=== PATIENT | female | born 1985 | race American Indian/Alaskan Native ===

== ENCOUNTER 2019-08-25 08:36 | Inpatient (IN) | payer SELFPAY ==
[2019-08-25] MEDS ORDERED: SODIUM CHLORIDE 0.9% 500 ML 500 ML IV ONE ×2 (09:03→11:04)
[2019-08-25 09:46] LABS: Hemoglobin 6.7 gm/dl (10.1-14.3); Mean Corpuscular HGB Conc 32 % (30-34); Mean Corpuscular Volume 83 fl (79-97); Platelet Count 893 K/mm3 (140-440); Red Blood Count 2.52 M/mm3 (3.65-5.03); Red Cell Distribution Width 15.4 % (13.2-15.2)
[2019-08-25 09:54] LABS: Alanine Aminotransferase 26 units/L (7-56); Albumin 3.2 g/dL (3.9-5); BUN/Creatinine Ratio 6; Blood Urea Nitrogen 5 mg/dL (7-17); Calcium 9.6 mg/dL (8.4-10.2); Hemolysis Index 0; INR 1.08 (0.87-1.13)
[2019-08-25] MEDS ORDERED: VANCOMYCIN/NS 1 GM/250 ML 1 GM/250 ML BAG IV ONE (11:02)
[2019-08-25] MEDS ORDERED: SODIUM CHLORIDE 0.9% 1000 ML 1,000 ML IV ONE (11:02)
[2019-08-25] MEDS ORDERED: PIPERACIL/TAZOBACTA 4.5/NS 100 4.5 GM/100 ML VIAL IV ONE (11:03)
[2019-08-25] MEDS ORDERED: MORPHINE 4 MG/1 ML INJ IV ONE (11:03)
[2019-08-25] MEDS ORDERED: ONDANSETRON 4 MG/2 ML INJ IV ONE (11:03)
--- NOTE | 2019-08-25 11:03 | XRay Report ---
CHEST 2 VIEWS INDICATION / CLINICAL INFORMATION: possible Sepsis. COMPARISON: None available. FINDINGS: SUPPORT DEVICES: None. HEART / MEDIASTINUM: No significant abnormality. LUNGS / PLEURA: No significant pulmonary or pleural abnormality. No pneumothorax. No evidence of pneu monia or significant pleural effusion. ADDITIONAL FINDINGS: No significant additional findings. IMPRESSION: 1. No significant abnormality. Signer Name: Charissa Vance MD Signed: 08/25/2019 10:58 AM Workstation Name: [id number]
--- NOTE | 2019-08-25 11:10 | Emergency Department Report ---
ED General Adult HPI - General Chief complaint: Pain General Stated complaint: POST SURGERY/PAIN EXTREME Time Seen by Provider: 08/25/19 10:56 Source: patient Mode of arrival: Ambulatory Limitations: No Limitations - History of Present Illness Initial comments: Patient is 34 years old female with no significant past medical history. Patient presented to the ER complaining of abscess to the right lateral upper thigh. Patient is also complaining of generalized body pain and weakness. Patient had a lipo-suction to the both thighs on August 13 in [place]. Patient stated that symptoms started a few days after the surgery and she called her surgeon and he called in some antibiotic but no improvement. Patient is in moderate distress secondary to pain. - Related Data Allergies Allergy/AdvReac Type Severity Reaction Status Date / Time No Known Allergies Allergy Verified 08/25/19 08:40 ED Review of Systems ROS: Stated complaint: POST SURGERY/PAIN EXTREME Other details as noted in HPI Comment: All other systems reviewed and negative Constitutional: denies: chills, fever Respiratory: denies: cough, shortness of breath, SOB with exertion Cardiovascular: denies: chest pain Gastrointestinal: denies: abdominal pain, nausea, vomiting Skin: lesions Neurological: weakness. denies: headache, numbness, paresthesias, confusion, abnormal gait ED Past Medical Hx - Past Medical History Previous Medical History?: No - Surgical History Past Surgical History?: No ED Physical Exam - General Limitations: No Limitations General appearance: alert, in distress - Head Head exam: Present: atraumatic, normocephalic, normal inspection - Eye Eye exam: Present: normal appearance - ENT ENT exam: Present: mucous membranes dry - Neck Neck exam: Present: normal inspection, full ROM. Absent: tenderness, meningismus, lymphadenopathy, thyromegaly - Respiratory Respiratory exam: Present: normal lung sounds bilaterally - Cardiovascular Cardiovascular Exam: Present: tachycardia - GI/Abdominal GI/Abdominal exam: Present: soft, normal bowel sounds. Absent: distended, tenderness, guarding, rebound, rigid, organomegaly, mass, bruit, pulsatile mass, hernia - Expanded Lower Extremity Exam Right Hip exam: Present: tenderness, swelling, erythema Upper Leg exam: Present: tenderness, swelling, erythema Knee exam: Present: normal inspection, full ROM. Absent: tenderness, swelling, abrasion, laceration, ecchymosis, deformity, crepidus Neuro vascular tendon exam: Present: no vascular compromise - Back Exam Back exam: Present: normal inspection, full ROM. Absent: CVA tenderness (R), CVA tenderness (L) - Neurological Exam Neurological exam: Present: alert, oriented X3, CN II-XII intact - Psychiatric Psychiatric exam: Present: normal mood - Skin Skin exam: Present: warm, intact, normal color ED Course Vital Signs 08/25/19 08/25/19 08:43 11:25 Temperature 98.2 F 99.1 F Pulse Rate 130 H 110 H Respiratory 16 18 Rate Blood Pressure 120/73 Blood Pressure 112/61 [Left] O2 Sat by Pulse 100 100 Oximetry ED Medical Decision Making - Lab Data Result diagrams: 08/25/19 09:10 08/25/19 09:10 - Radiology Data Radiology results: report reviewed - Medical Decision Making Patient is 34 years old female with no significant past medical history. Patient presented to the ER complaining of abscess to the right lateral upper thigh. Patient is also complaining of generalized body pain and weakness. Patient had a lipo-suction to the both thighs on August 13 in [place]. Patient stated that symptoms started a few days after the surgery and she called her surgeon and he called in some antibiotic but no improvement. Patient is in moderate distress secondary to pain. Patient received an normal saline, Zosyn, vancomycin, morphine and Zofran. Labs showed white blood cells of 15.8. I discussed the patient with Dr. Chirinos, he advised to admit the patient to the hospitalist and he is coming down to evaluate the patient. I discussed the patient with Dr. Gutierrez, he advised to admit the patient to Dr. Norman. Critical care attestation.: If time is entered above; I have spent that time in minutes in the direct care of this critically ill patient, excluding procedure time. ED Disposition Clinical Impression: Abscess, gluteal, right, Surgical wound infection Disposition: OP ADMIT IP TO THIS HOSP Is pt being admited?: Yes Condition: Stable Referrals: PRIMARY CARE, [Primary Care Provider] - 3-5 Days
[2019-08-25] MEDS ORDERED: VANCOMYCIN 1,750 MG in SODIUM CHLORIDE 0.9% 500 ML 500 ML IV ONE (12:00)
[2019-08-25 12:27] LABS: Bilirubin,Urine NEG (Negative); Blood,Urine NEG (Negative); Color,Urine Amber (Yellow); Mucus,Urine FEW /HPF
[2019-08-25 12:45] LABS: Total Cells Counted 100
[2019-08-25 12:46] LABS: Band Neutrophils # (Manual) 0.9 K/mm3; Basophils % (Manual) 0 % (0.0-1.8); Myelocytes # (Manual) 0.6 K/mm3; Tear Drop Cells 1+
[2019-08-25 12:47] LABS: Stomatocytes Few
[2019-08-25 12:48] LABS: Platelet Estimate Consistent w Auto
--- NOTE | 2019-08-25 14:45 | Ultrasound Report ---
SOFT TISSUE ULTRASOUND RIGHT GLUTEAL REGION INDICATION: abscess right upper thigh. COMPARISON: None available. FINDINGS: There is a complex fluid collection with internal debris characteristic for abscess within the right gluteal region measuring 5.0 x 2.5 x 1.4cm Signer Name: Kevin Nassar MD Signed: 08/25/2019 2:41 PM Workstation Name: [id number]
--- NOTE | 2019-08-25 15:48 | Consultation ---
History of Present Illness Consult date: 08/25/19 Reason for consult: other (post-op infection) Requesting physician: ERIKA MENDEZ Chief complaint: right thigh pain and drainage - History of present illness History of present illness: 34yo F otherwise healthy presents with concerns of right thigh pain and drainage. She had a plastic surgery procedure on the buttocks in [place] on August 12. She complained of [place] at the airport and inappropriate compression garments as cause for her current problems. She reports that last Monday she began to have some thin drainage from the wound. She has been feeling feverish but has not checked her temperature. Denies chills. Unclear if she has been having nausea and vomiting. She definitely reports headaches. Ultrasound done by the emergency room showed a complex fluid collection in the right buttock/thigh area. Gen. surgery was consult for evaluation and treatment. Past History Past Medical History: No medical history Past Surgical History: Other (buttock plastic surgery in [place] (08/12/19)) Social history: denies: smoking, alcohol abuse Family history: no significant family history Medications and Allergies Allergies Allergy/AdvReac Type Severity Reaction Status Date / Time No Known Allergies Allergy Verified 08/25/19 08:40 Review of Systems - Constitutional fever, no chills, no chronic pain - EENT Ears, nose, mouth and throat: headache - Cardiovascular no chest pain, no shortness of breath - Gastrointestinal no abdominal pain - Muskuloskeletal right: hip pain, hip swelling - Integumentary wounds, color changes Exam Vital Signs Temp Pulse Resp BP Pulse Ox 98.2 F 130 H 16 112/61 100 08/25/19 08:43 08/25/19 08:43 08/25/19 08:43 08/25/19 08:43 08/25/19 08:43 - General physical appearance Positive: well developed, well nourished, no distress, no pain - Eyes Positive: normal occular movement - Respiratory Positive: normal expansion, normal respiratory effort - Extremities Extremity abnormal: edema, ulceration, erythema, tenderness, other (wound noted on right lateral upper thigh with areas of necrosis, erythema, and yellowish drainage. ) - Neurologic Neurologic: alert and oriented to time, place and person, motor strength and sensation are grossly intact - Psychiatric Psychiatric: appropriate mood/affect, intact judgment & insight, cooperative Results - Labs 08/25/19 09:10 08/25/19 09:10 Abnormal lab results 08/25/19 08/25/19 08/25/19 Range/Units 09:10 09:10 12:29 WBC 15.8 H (4.5-11.0) K/mm3 RBC 2.52 L (3.65-5.03) M/mm3 Hgb 6.7 L (10.1-14.3) gm/dl Hct 21.0 L (30.3-42.9) % MCH 27 L (28-32) pg RDW 15.4 H (13.2-15.2) % Plt Count 893 H (140-440) K/mm3 Lymphocytes % (Manual) 6.0 L (13.4-35.0) % Monocytes % (Manual) 9.0 H (0.0-7.3) % Seg Neutrophils # Man 10.6 H (1.8-7.7) K/mm3 Lymphocytes # (Manual) 0.9 L (1.2-5.4) K/mm3 Monocytes # (Manual) 1.4 H (0.0-0.8) K/mm3 Sodium 134 L (137-145) mmol/L Chloride 95.5 L (98-107) mmol/L BUN 5 L (7-17) mg/dL Glucose 101 H (65-100) mg/dL Lactic Acid 2.10 H* (0.7-2.0) mmol/L Albumin 3.2 L (3.9-5) g/dL Crossmatch 08/25/19 Range/Units 12:29 WBC (4.5-11.0) K/mm3 RBC (3.65-5.03) M/mm3 Hgb (10.1-14.3) gm/dl Hct (30.3-42.9) % MCH (28-32) pg RDW (13.2-15.2) % Plt Count (140-440) K/mm3 Lymphocytes % (Manual) (13.4-35.0) % Monocytes % (Manual) (0.0-7.3) % Seg Neutrophils # Man (1.8-7.7) K/mm3 Lymphocytes # (Manual) (1.2-5.4) K/mm3 Monocytes # (Manual) (0.0-0.8) K/mm3 Sodium (137-145) mmol/L Chloride (98-107) mmol/L BUN (7-17) mg/dL Glucose (65-100) mg/dL Lactic Acid (0.7-2.0) mmol/L Albumin (3.9-5) g/dL Crossmatch See Detail Diabetes panel 08/25/19 Range/Units 09:10 Sodium 134 L (137-145) mmol/L Potassium 4.4 (3.6-5.0) mmol/L Chloride 95.5 L (98-107) mmol/L Carbon Dioxide 23 (22-30) mmol/L BUN 5 L (7-17) mg/dL Creatinine 0.8 (0.7-1.2) mg/dL Glucose 101 H (65-100) mg/dL Calcium 9.6 (8.4-10.2) mg/dL AST 26 (5-40) units/L ALT 26 (7-56) units/L Alkaline Phosphatase 101 (35-129) units/L Total Protein 8.0 (6.3-8.2) g/dL Albumin 3.2 L (3.9-5) g/dL Calcium panel 08/25/19 Range/Units 09:10 Calcium 9.6 (8.4-10.2) mg/dL Albumin 3.2 L (3.9-5) g/dL Pituitary panel 08/25/19 Range/Units 09:10 Sodium 134 L (137-145) mmol/L Potassium 4.4 (3.6-5.0) mmol/L Chloride 95.5 L (98-107) mmol/L Carbon Dioxide 23 (22-30) mmol/L BUN 5 L (7-17) mg/dL Creatinine 0.8 (0.7-1.2) mg/dL Glucose 101 H (65-100) mg/dL Calcium 9.6 (8.4-10.2) mg/dL Adrenal panel 08/25/19 Range/Units 09:10 Sodium 134 L (137-145) mmol/L Potassium 4.4 (3.6-5.0) mmol/L Chloride 95.5 L (98-107) mmol/L Carbon Dioxide 23 (22-30) mmol/L BUN 5 L (7-17) mg/dL Creatinine 0.8 (0.7-1.2) mg/dL Glucose 101 H (65-100) mg/dL Calcium 9.6 (8.4-10.2) mg/dL Total Bilirubin 0.40 (0.1-1.2) mg/dL AST 26 (5-40) units/L ALT 26 (7-56) units/L Alkaline Phosphatase 101 (35-129) units/L Total Protein 8.0 (6.3-8.2) g/dL Albumin 3.2 L (3.9-5) g/dL - Imaging Additional studies: US of right leg - report and images reviewed Assessment and Plan - Patient Problems (1) Surgical wound infection Current Visit: Yes Status: Acute Plan to address problem: Pt stable. By history, clinical exam and ultrasound, it appears as though patient has a postoperative abscess. Recommendation was given for incision and drainage in the operating room today. Patient was alarmed and upset that she would need surgery. She was worried about scarring. She wanted other options short of surgery. She wants to talk to her family before any decisions are made. She wants to avoid surgery if possible. I told her that we will not force her into surgery, but if the antibiotics are not effective, the infection may get worse which may put her leg and/or life at risk. She wishes to think about it and talk to her family first. I will follow up with her tomorrow. I explained this to the ER physician Dr. Mendez. Please call with questions. Time=30min
--- NOTE | 2019-08-25 16:40 | History and Physical Report ---
History of Present Illness Date of admission: 08/25/19 15:23 Chief complaint: My butt hurts History of present illness: 34-year-old female with no past medical history presents to ED for evaluation. Patient states that she underwent cosmetic surgery in [place] on August 13. Patient states that she has experienced discomfort in her thighs and buttock postoperatively. Patient states that she returned to [place] postoperatively and has experienced generalized weakness, body aches, and subjective fever over the past 1 week. Patient states that he she notified her physician in [place] who prescribed oral antibiotic. Patient states that she has completed the antibiotic course without improvement in her symptoms. Patient states that she has experienced worsening of the aforementioned symptoms over the past 2 days and presents to [facility] ED for further care and evaluation. Patient transported to [facility] via private vehicle. Patient seen and evaluated in ED upon arrival. Lab and imaging studies reviewed. Patient underwent ultrasound of the right buttock and was found to have a right buttock abscess complicated by right buttock cellulitis. General surgery team consulted in ED. Patient admitted to medical floor for medical stabilization due to increased risk of decompensation. Patient denies fever, chills, chest pain, palpitation, bright red blood per rectum, shortness of breath, skin rash, or recent ill contacts. No prior admission for review. No medication listed for reconciliation at time of evaluation. Past History Past Medical History: No medical history, other (Reviewed) Past Surgical History: Other (buttock plastic surgery in [place] (08/12/19)) Social history: single. denies: smoking, alcohol abuse Family history: no significant family history Medications and Allergies Allergies Allergy/AdvReac Type Severity Reaction Status Date / Time No Known Allergies Allergy Verified 08/25/19 08:40 Home Medications Medication Instructions Recorded Confirmed Last Taken Type No Known Home Medications [No 08/25/19 08/25/19 Unknown History Reported Home Medications] Review of Systems Constitutional: fever, other (Subjective fever), no weight loss, no weight gain Ears, nose, mouth and throat: no ear pain, no ear discharge, no decreased hearing, no nasal congestion, no nasal discharge Breasts: no change in shape, no swelling Cardiovascular: no chest pain, no orthopnea, no edema, no syncope Respiratory: no cough, no cough with sputum, no excessive sputum, no shortness of breath Gastrointestinal: no abdominal pain, no nausea, no vomiting, no diarrhea, no constipation Genitourinary Female: other (Buttock pain and redness.), no pelvic pain, no flank pain Musculoskeletal: no neck stiffness, no neck pain, no shooting arm pain Integumentary: no pruritis, no redness, no jaundice, no blisters Neurological: no transient paralysis, no parathesias, no numbness, no seizures, no syncope, no tremors Psychiatric: no anxiety, no change in sleep habits, no sleep disturbances, no change in appetite, no change in libido, no disorientation Endocrine: no cold intolerance, no excessive thirst, no nocturia, no excessive sweating Hematologic/Lymphatic: no easy bruising, no easy bleeding, no lymphadenopathy, no lymphedema Allergic/Immunologic: no urticaria, no wheezing, no angioedema Exam - Constitutional Vitals: Temp Pulse Resp BP Pulse Ox 99.1 F 110 H 18 120/73 100 08/25/19 11:25 08/25/19 11:25 08/25/19 11:25 08/25/19 11:25 08/25/19 11:25 General appearance: Present: mild distress - EENT Eyes: Present: PERRL ENT: hearing intact, clear oral mucosa - Neck Neck: Present: supple, normal ROM - Respiratory Respiratory effort: normal Respiratory: bilateral: CTA - Cardiovascular Heart Sounds: Present: S1 & S2. Absent: rub, click - Extremities Extremities: pulses symmetrical, No edema Extremity abnormal: erythema, other (Right buttock erythema, tenderness, fluctuance.) Peripheral Pulses: within normal limits - Abdominal General gastrointestinal: Present: soft, non-tender, non-distended, normal bowel sounds Female genitourinary: Present: normal - Integumentary Integumentary: Present: warm, dry, erythema - Musculoskeletal Musculoskeletal: gait normal, strength equal bilaterally - Psychiatric Psychiatric: appropriate mood/affect, intact judgment & insight - Neurologic Neurologic: CNII-XII intact, moves all extremities Results - Labs CBC & Chem 7: 08/25/19 09:10 08/25/19 09:10 Labs: Abnormal lab results 08/25/19 08/25/19 08/25/19 Range/Units 09:10 09:10 12:29 WBC 15.8 H (4.5-11.0) K/mm3 RBC 2.52 L (3.65-5.03) M/mm3 Hgb 6.7 L (10.1-14.3) gm/dl Hct 21.0 L (30.3-42.9) % MCH 27 L (28-32) pg RDW 15.4 H (13.2-15.2) % Plt Count 893 H (140-440) K/mm3 Lymphocytes % (Manual) 6.0 L (13.4-35.0) % Monocytes % (Manual) 9.0 H (0.0-7.3) % Seg Neutrophils # Man 10.6 H (1.8-7.7) K/mm3 Lymphocytes # (Manual) 0.9 L (1.2-5.4) K/mm3 Monocytes # (Manual) 1.4 H (0.0-0.8) K/mm3 Sodium 134 L (137-145) mmol/L Chloride 95.5 L (98-107) mmol/L BUN 5 L (7-17) mg/dL Glucose 101 H (65-100) mg/dL Lactic Acid 2.10 H* (0.7-2.0) mmol/L Albumin 3.2 L (3.9-5) g/dL Crossmatch 08/25/19 Range/Units 12:29 WBC (4.5-11.0) K/mm3 RBC (3.65-5.03) M/mm3 Hgb (10.1-14.3) gm/dl Hct (30.3-42.9) % MCH (28-32) pg RDW (13.2-15.2) % Plt Count (140-440) K/mm3 Lymphocytes % (Manual) (13.4-35.0) % Monocytes % (Manual) (0.0-7.3) % Seg Neutrophils # Man (1.8-7.7) K/mm3 Lymphocytes # (Manual) (1.2-5.4) K/mm3 Monocytes # (Manual) (0.0-0.8) K/mm3 Sodium (137-145) mmol/L Chloride (98-107) mmol/L BUN (7-17) mg/dL Glucose (65-100) mg/dL Lactic Acid (0.7-2.0) mmol/L Albumin (3.9-5) g/dL Crossmatch See Detail Assessment and Plan - Patient Problems (1) Abscess, gluteal, right Current Visit: Yes Status: Acute Plan to address problem: Right buttock ultrasound, CBC, CMP, serial physical exam, IV antibiotic therapy, surgery team consulted. (2) Surgical wound infection Current Visit: Yes Status: Acute Plan to address problem: IV antibiotic therapy, surgery team consulted, pain control, supportive care. (3) Systemic inflammatory response syndrome Current Visit: Yes Status: Acute Plan to address problem: IV antibiotic therapy, IV fluid resuscitation therapy, CBC, CMP, urinalysis, ultrasound of the right buttock. (4) DVT prophylaxis Current Visit: Yes Status: Acute Plan to address problem: SCD to bilateral lower extremities while in bed, patient ambulatory
[2019-08-25] MEDS ORDERED: MORPHINE 2 MG/1 ML INJ IV ONE (19:28)
[2019-08-25] MEDS ORDERED: MORPHINE 2 MG/1 ML INJ ONE (19:29)
[2019-08-25] MEDS ORDERED: MORPHINE 2 MG/1 ML INJ IV PRN (22:08)
[2019-08-25] MEDS ORDERED: SODIUM CHLORIDE 0.9% 500 ML 500 ML ONE (22:36)
[2019-08-26] MEDS: oxyCODONE /ACETAMINOPHEN 5-325MG TAB PO PRN ×3 (01:49→22:36)
[2019-08-26 08:58] LABS: Hematocrit 22.9 % (30.3-42.9); Hemoglobin 7.3 gm/dl (10.1-14.3); Mean Corpuscular HGB Conc 32 % (30-34); Mean Corpuscular Volume 84 fl (79-97); Platelet Count 742 K/mm3 (140-440); Red Blood Count 2.73 M/mm3 (3.65-5.03); Red Cell Distribution Width 15.2 % (13.2-15.2)
--- NOTE | 2019-08-26 09:37 | Progress Note ---
Assessment and Plan - Patient Problems (1) Surgical wound infection Current Visit: Yes Status: Acute Plan to address problem: Pt stable. I spoke with her plastic surgeon, Dr. Mcqueen, this morning. He reports that he has been following pictures that she has been sending. He feels the wound is improved compared to 2 days ago based on the pictures. He details that he injected fat into this area. It is a single collection. In his experience, simply expressing all the liquefied fat tissue is sufficient. He suggested conservative management with IV antibiotics. If she worsens, then proceed to the operating room. Patient would like to follow this plan. Therefore, we will hold off on any surgical intervention at this time. I expressed a small to moderate amount of liquefied fat at the bedside. I encouraged her to do this a few times a day. I will follow along in her care. If she does not improve or worsens, then we will proceed to the operating room. Please call with any questions. Subjective Date of service: 08/26/19 Patient Reports: Positive: no new complaints, afebrile, other (asked that I speak with her plastic surgeon) Objective Vital Signs - 12hr 08/25/19 08/26/19 08/26/19 23:55 00:46 01:01 Temperature 99.0 F 99.2 F 98.6 F Pulse Rate 111 H 113 H 105 H Respiratory 18 20 18 Rate Blood Pressure 131/59 96/53 100/56 O2 Sat by Pulse 100 100 Oximetry 08/26/19 08/26/19 08/26/19 01:31 02:05 02:35 Temperature 98.5 F 98.0 F 98.2 F Pulse Rate 107 H 111 H 102 H Respiratory 18 18 18 Rate Blood Pressure 94/53 92/43 82/43 O2 Sat by Pulse Oximetry 08/26/19 08/26/19 02:54 05:04 Temperature 98.2 F 98.0 F Pulse Rate 108 H 95 H Respiratory 18 20 Rate Blood Pressure 87/39 128/68 O2 Sat by Pulse 100 Oximetry - General physical appearance no distress, no pain, other (does not appear ill) - Eyes normal occular movement - Respiratory normal expansion, normal respiratory effort - Integumentary other (thinned, necrotic skin on right lateral thigh. +warmth and tenderness. liquifed fat draining out. ) - Psychiatric oriented to time, oriented to person, oriented to place, speech is normal, memory intact - Labs 08/26/19 08:26 08/25/19 09:10 Diabetes panel 08/25/19 Range/Units 09:10 Sodium 134 L (137-145) mmol/L Potassium 4.4 (3.6-5.0) mmol/L Chloride 95.5 L (98-107) mmol/L Carbon Dioxide 23 (22-30) mmol/L BUN 5 L (7-17) mg/dL Creatinine 0.8 (0.7-1.2) mg/dL Glucose 101 H (65-100) mg/dL Calcium 9.6 (8.4-10.2) mg/dL AST 26 (5-40) units/L ALT 26 (7-56) units/L Alkaline Phosphatase 101 (35-129) units/L Total Protein 8.0 (6.3-8.2) g/dL Albumin 3.2 L (3.9-5) g/dL Calcium panel 08/25/19 Range/Units 09:10 Calcium 9.6 (8.4-10.2) mg/dL Albumin 3.2 L (3.9-5) g/dL Pituitary panel 08/25/19 Range/Units 09:10 Sodium 134 L (137-145) mmol/L Potassium 4.4 (3.6-5.0) mmol/L Chloride 95.5 L (98-107) mmol/L Carbon Dioxide 23 (22-30) mmol/L BUN 5 L (7-17) mg/dL Creatinine 0.8 (0.7-1.2) mg/dL Glucose 101 H (65-100) mg/dL Calcium 9.6 (8.4-10.2) mg/dL Adrenal panel 08/25/19 Range/Units 09:10 Sodium 134 L (137-145) mmol/L Potassium 4.4 (3.6-5.0) mmol/L Chloride 95.5 L (98-107) mmol/L Carbon Dioxide 23 (22-30) mmol/L BUN 5 L (7-17) mg/dL Creatinine 0.8 (0.7-1.2) mg/dL Glucose 101 H (65-100) mg/dL Calcium 9.6 (8.4-10.2) mg/dL Total Bilirubin 0.40 (0.1-1.2) mg/dL AST 26 (5-40) units/L ALT 26 (7-56) units/L Alkaline Phosphatase 101 (35-129) units/L Total Protein 8.0 (6.3-8.2) g/dL Albumin 3.2 L (3.9-5) g/dL
[2019-08-26 09:42] LABS: Anisocytosis 1+; Band Neutrophils # (Manual) 1.3 K/mm3; Basophils % (Manual) 0 % (0.0-1.8); Total Cells Counted 100
[2019-08-26 09:43] LABS: Hypochromasia Few; Ovalocytes Few; Platelet Estimate Consistent w Auto; Tear Drop Cells Few
--- NOTE | 2019-08-26 13:34 | Progress Note ---
Assessment and Plan - Patient Problems (1) Abscess, gluteal, right Current Visit: Yes Status: Acute Plan to address problem: Right buttock ultrasound, CBC, CMP, serial physical exam, IV antibiotic therapy, surgery team consulted. (2) Surgical wound infection Current Visit: Yes Status: Acute Plan to address problem: IV antibiotic therapy, surgery team consulted, pain control, supportive care. (3) Systemic inflammatory response syndrome Current Visit: Yes Status: Acute Plan to address problem: IV antibiotic therapy, IV fluid resuscitation therapy, CBC, CMP, urinalysis, ultrasound of the right buttock. Patient continues to have leukocytosis and pain at her surgical site. Will continue current IV antibiotic therapy. (4) DVT prophylaxis Current Visit: Yes Status: Acute Plan to address problem: SCD to bilateral lower extremities while in bed, patient ambulatory History Interval history: 34-year-old female hospital day 2 with right buttock abscess. Patient states that her pain is more controlled today pain. Patient continues to acknowledge right buttock pain. Patient denies fever, chills, chest pain, palpitations, shortness of breath. Patient continues to have leukocytosis. Patient is unable to maintain a seated position due to buttock pain. Patient underwent partial expulsion of fat from surgical injection site as per surgical team this a.m. Patient resting in bed while lying on her abdomen. Patient appears comfortable. No reported nursing events Hospitalist Physical - Constitutional Vitals: Temp Pulse Resp BP Pulse Ox 97.2 F L 95 H 20 101/57 100 08/26/19 11:34 08/26/19 05:04 08/26/19 11:34 08/26/19 11:34 08/26/19 05:04 General appearance: Present: mild distress - EENT Eyes: Present: PERRL ENT: hearing intact - Neck Neck: Present: supple - Respiratory Respiratory effort: normal Respiratory: bilateral: CTA - Cardiovascular Rhythm: regular Heart Sounds: Present: S1 & S2 - Extremities Extremities: no ischemia Extremity abnormal: erythema, deformity, tenderness, other (Right buttock) Peripheral Pulses: within normal limits - Abdominal General gastrointestinal: soft, non-tender, non-distended - Integumentary Integumentary: Present: clear, warm, dry - Psychiatric Psychiatric: appropriate mood/affect, cooperative Results - Labs CBC & Chem 7: 08/26/19 08:26 08/25/19 09:10 Labs: Laboratory Last Values WBC 14.1 K/mm3 (4.5-11.0) H 08/26/19 08:26 RBC 2.73 M/mm3 (3.65-5.03) L 08/26/19 08:26 Hgb 7.3 gm/dl (10.1-14.3) L 08/26/19 08:26 Hct 22.9 % (30.3-42.9) L 08/26/19 08:26 MCV 84 fl (79-97) 08/26/19 08:26 MCH 27 pg (28-32) L 08/26/19 08:26 MCHC 32 % (30-34) 08/26/19 08:26 RDW 15.2 % (13.2-15.2) 08/26/19 08:26 Plt Count 742 K/mm3 (140-440) H 08/26/19 08:26 Add Manual Diff Complete 08/26/19 08:26 Total Counted 100 08/26/19 08:26 Seg Neuts % (Manual) 66.0 % (40.0-70.0) 08/26/19 08:26 Band Neutrophils % 9.0 % 08/26/19 08:26 Lymphocytes % (Manual) 11.0 % (13.4-35.0) L 08/26/19 08:26 Reactive Lymphs % (Man) 0 % 08/26/19 08:26 Monocytes % (Manual) 8.0 % (0.0-7.3) H 08/26/19 08:26 Eosinophils % (Manual) 4.0 % (0.0-4.3) 08/26/19 08:26 Basophils % (Manual) 0 % (0.0-1.8) 08/26/19 08:26 Metamyelocytes % 2.0 % 08/26/19 08:26 Myelocytes % 0 % 08/26/19 08:26 Promyelocytes % 0 % 08/26/19 08:26 Blast Cells % 0 % 08/26/19 08:26 Nucleated RBC % Not Reportable 08/26/19 08:26 Seg Neutrophils # Man 9.3 K/mm3 (1.8-7.7) H 08/26/19 08:26 Band Neutrophils # 1.3 K/mm3 08/26/19 08:26 Lymphocytes # (Manual) 1.6 K/mm3 (1.2-5.4) 08/26/19 08:26 Abs React Lymphs (Man) 0.0 K/mm3 08/26/19 08:26 Monocytes # (Manual) 1.1 K/mm3 (0.0-0.8) H 08/26/19 08:26 Eosinophils # (Manual) 0.6 K/mm3 (0.0-0.4) H 08/26/19 08:26 Basophils # (Manual) 0.0 K/mm3 (0.0-0.1) 08/26/19 08:26 Metamyelocytes # 0.3 K/mm3 08/26/19 08:26 Myelocytes # 0.0 K/mm3 08/26/19 08:26 Promyelocytes # 0.0 K/mm3 08/26/19 08:26 Blast Cells # 0.0 K/mm3 08/26/19 08:26 WBC Morphology Not Reportable 08/26/19 08:26 Hypersegmented Neuts Not Reportable 08/26/19 08:26 Hyposegmented Neuts Not Reportable 08/26/19 08:26 Hypogranular Neuts Not Reportable 08/26/19 08:26 Smudge Cells Not Reportable 08/26/19 08:26 Toxic Granulation Not Reportable 08/26/19 08:26 Toxic Vacuolation Not Reportable 08/26/19 08:26 Dohle Bodies Not Reportable 08/26/19 08:26 Pelger-Huet Anomaly Not Reportable 08/26/19 08:26 David Rods Not Reportable 08/26/19 08:26 Platelet Estimate Consistent w auto 08/26/19 08:26 Clumped Platelets Not Reportable 08/26/19 08:26 Plt Clumps, EDTA Not Reportable 08/26/19 08:26 Large Platelets Not Reportable 08/26/19 08:26 Giant Platelets Not Reportable 08/26/19 08:26 Platelet Satelliting Not Reportable 08/26/19 08:26 Plt Morphology Comment Not Reportable 08/26/19 08:26 RBC Morphology Not Reportable 08/26/19 08:26 Dimorphic RBCs Not Reportable 08/26/19 08:26 Polychromasia 1+ 08/26/19 08:26 Hypochromasia Few 08/26/19 08:26 Poikilocytosis Not Reportable 08/26/19 08:26 Anisocytosis 1+ 08/26/19 08:26 Microcytosis Not Reportable 08/26/19 08:26 Macrocytosis Not Reportable 08/26/19 08:26 Spherocytes Not Reportable 08/26/19 08:26 Pappenheimer Bodies Not Reportable 08/26/19 08:26 Sickle Cells Not Reportable 08/26/19 08:26 Target Cells Not Reportable 08/26/19 08:26 Tear Drop Cells Few 08/26/19 08:26 Ovalocytes Few 08/26/19 08:26 Stomatocytes Few 08/25/19 09:10 Helmet Cells Not Reportable 08/26/19 08:26 [place] Bodies Not Reportable 08/26/19 08:26 [place] Rings Not Reportable 08/26/19 08:26 [place] Cells Not Reportable 08/26/19 08:26 Bite Cells Not Reportable 08/26/19 08:26 Crenated Cell Not Reportable 08/26/19 08:26 Elliptocytes Not Reportable 08/26/19 08:26 Acanthocytes (Spur) Not Reportable 08/26/19 08:26 Rouleaux Not Reportable 08/26/19 08:26 Hemoglobin C Crystals Not Reportable 08/26/19 08:26 Schistocytes Not Reportable 08/26/19 08:26 Malaria parasites Not Reportable 08/26/19 08:26 Jose E Bodies Not Reportable 08/26/19 08:26 Hem Pathologist Commnt No 08/26/19 08:26 PT 14.1 Sec. (12.2-14.9) 08/25/19 09:10 INR 1.08 (0.87-1.13) 08/25/19 09:10 VBG pH 7.394 (7.320-7.420) 08/25/19 09:10 Sodium 134 mmol/L (137-145) L 08/25/19 09:10 Potassium 4.4 mmol/L (3.6-5.0) 08/25/19 09:10 Chloride 95.5 mmol/L (98-107) L 08/25/19 09:10 Carbon Dioxide 23 mmol/L (22-30) 08/25/19 09:10 Anion Gap 20 mmol/L 08/25/19 09:10 BUN 5 mg/dL (7-17) L 08/25/19 09:10 Creatinine 0.8 mg/dL (0.7-1.2) 08/25/19 09:10 Estimated GFR > 60 ml/min 08/25/19 09:10 BUN/Creatinine Ratio 6 % 08/25/19 09:10 Glucose 101 mg/dL (65-100) H 08/25/19 09:10 Lactic Acid 1.90 mmol/L (0.7-2.0) 08/25/19 14:34 Calcium 9.6 mg/dL (8.4-10.2) 08/25/19 09:10 Total Bilirubin 0.40 mg/dL (0.1-1.2) 08/25/19 09:10 AST 26 units/L (5-40) 08/25/19 09:10 ALT 26 units/L (7-56) 08/25/19 09:10 Alkaline Phosphatase 101 units/L (35-129) 08/25/19 09:10 Total Protein 8.0 g/dL (6.3-8.2) 08/25/19 09:10 Albumin 3.2 g/dL (3.9-5) L 08/25/19 09:10 Albumin/Globulin Ratio 0.7 % 08/25/19 09:10 HCG, Qual Negative (Negative) 08/25/19 12:29 Urine Color Myrna (Yellow) 08/25/19 11:30 Urine Turbidity Slightly-cloudy (Clear) 08/25/19 11:30 Urine pH 6.0 (5.0-7.0) 08/25/19 11:30 Ur Specific [place] 1.020 (1.003-1.030) 08/25/19 11:30 Urine Protein 30 mg/dl mg/dL (Negative) 08/25/19 11:30 Urine Glucose (UA) Neg mg/dL (Negative) 08/25/19 11:30 Urine Ketones Neg mg/dL (Negative) 08/25/19 11:30 Urine Blood Neg (Negative) 08/25/19 11:30 Urine Nitrite Neg (Negative) 08/25/19 11:30 Urine Bilirubin Neg (Negative) 08/25/19 11:30 Urine Urobilinogen 4.0 mg/dL (<2.0) 08/25/19 11:30 Ur Leukocyte Esterase Tr (Negative) 08/25/19 11:30 Urine WBC (Auto) 6.0 /HPF (0.0-6.0) 08/25/19 11:30 Urine RBC (Auto) 4.0 /HPF (0.0-6.0) 08/25/19 11:30 U Epithel Cells (Auto) 11.0 /HPF (0-13.0) 08/25/19 11:30 Urine Mucus Few /HPF 08/25/19 11:30 Blood Type O POSITIVE 08/25/19 12:29 Antibody Screen Negative 08/25/19 12:29 Crossmatch See Detail 08/25/19 12:29 Active Medications - Current Medications Current Medications: Generic Name Dose Route Start Last Admin Trade Name Freq PRN Reason Stop Dose Admin Piperacillin Sod/Tazobactam Sod 4.5 gm in 100 mls @ 200 mls/hr 08/26/19 14:00 Zosyn/Ns 4.5gm/100ml IV Q8HR KAVIN Protocol Vancomycin HCl 1,250 mg/ 275 mls @ 166.667 mls/hr 08/26/19 12:00 Sodium Chloride IV Q12H KAVIN Oxycodone/Acetaminophen 1 tab 08/26/19 01:37 08/26/19 01:49 Percocet 5/325 PO 1 tab Q6H PRN Administration Pain, Moderate (4-6)
[2019-08-26] MEDS: VANCOMYCIN 1,250 MG in SODIUM CHLORIDE 0.9% 250ML 250 ML IV SCH (14:56)
[2019-08-26] MEDS ORDERED: SODIUM CHLORIDE 0.9% 500 ML 500 ML ONE (15:09)
[2019-08-26] MEDS: PIPERACIL/TAZOBACTA 4.5/NS 100 4.5 GM/100 ML VIAL IV SCH ×2 (17:13→22:02)
[2019-08-27] MEDS: VANCOMYCIN 1,250 MG in SODIUM CHLORIDE 0.9% 250ML 250 ML IV SCH ×2 (00:45→11:16)
[2019-08-27] MEDS: PIPERACIL/TAZOBACTA 4.5/NS 100 4.5 GM/100 ML VIAL IV SCH ×2 (05:55→15:05)
[2019-08-27 08:51] LABS: Hemoglobin 7.7 gm/dl (10.1-14.3); Mean Corpuscular HGB Conc 32 % (30-34); Mean Corpuscular Volume 84 fl (79-97); Platelet Count 774 K/mm3 (140-440); Red Blood Count 2.86 M/mm3 (3.65-5.03); Red Cell Distribution Width 15.8 % (13.2-15.2)
--- NOTE | 2019-08-27 09:52 | Progress Note ---
Assessment and Plan - Patient Problems (1) Surgical wound infection Current Visit: Yes Status: Acute Plan to address problem: Pt stable. We discussed that her WBC is stable. Hoping for it to continue to decrease. I offered that we could discharge her on oral Abx and have her get back to [facility] soon so that she and her plastic surgeon can decide how best to manage this or we would go to surgery and clean out the wound. she was unable to decide what to do. Eventually, I told her to let us know what she wants to do. She can not stay here indefinitely on IV Abx. Please call with questions. time=10min Subjective Date of service: 08/27/19 Patient Reports: Positive: feels better Objective Vital Signs - 12hr 08/26/19 08/26/19 08/26/19 22:00 22:36 23:27 Temperature 98.0 F Pulse Rate 110 H Pulse Rate [ 82 Apical] Respiratory 20 20 Rate Blood Pressure 93/55 O2 Sat by Pulse 98 98 Oximetry 08/26/19 08/27/19 23:36 05:43 Temperature 98.0 F Pulse Rate 105 H Pulse Rate [ Apical] Respiratory 18 20 Rate Blood Pressure 108/58 O2 Sat by Pulse 100 Oximetry - General physical appearance no distress, no pain, other (does not appear ill. Standing in the room) - Respiratory normal expansion, normal respiratory effort - Integumentary other (right leg wound appears unchanged - no worse. no active drainage at this time. ) - Psychiatric oriented to time, oriented to person, oriented to place, speech is normal, memory intact - Labs 08/27/19 08:28 08/25/19 09:10
[2019-08-27 09:55] LABS: Anisocytosis Few; Basophils % (Manual) 0 % (0.0-1.8); Eosinophils % (Manual) 0 % (0.0-4.3); Hypochromasia Rare; Total Cells Counted 100
[2019-08-27 09:56] LABS: Ovalocytes Rare; Platelet Estimate Consistent w Auto; Tear Drop Cells Rare
[2019-08-27] MEDS ORDERED: ONDANSETRON 8 MG ODT TAB PO PRN ×2 (11:27→11:34)
[2019-08-27] MEDS ORDERED: MORPHINE 2 MG/1 ML INJ IV PRN (11:28)
[2019-08-27] MEDS ORDERED: ONDANSETRON 4 MG/2 ML INJ IV PRN (11:28)
[2019-08-27] MEDS ORDERED: ACETAMINOPHEN 325 MG TAB PO PRN (11:28)
[2019-08-27] MEDS ORDERED: ONDANSETRON 4 MG ODT TAB PO PRN (11:34)
[2019-08-27] MEDS: oxyCODONE /ACETAMINOPHEN 5-325MG TAB PO PRN ×2 (11:48→18:35)
[2019-08-27] MEDS ORDERED: VANCOMYCIN PHARMACY TO DOSE IV SCH (12:00)
--- NOTE | 2019-08-27 15:46 | Consultation ---
History of Present Illness - Reason for Consult Consult date: 08/27/19 - History of Present Illness 34 yo F no PMHx admitted to the hospital for a post-plastic surgical gluteal abscess. She notes she underwent a liposuction in [place] on of last year. She notes that after the operation she began to have pain and discomfort in her thighs which eventually developed into generalized weakness, myalgias and subjective fevers. her surgeon in [place] prescribed an oral antibiotic which did not alleviate her symptoms. Indeed, the symptoms continued to progress and become worse and worse. In the ER, an ultrasound was performed which showed an abscess in the gluteus. She was evaluated by general surgery who recommended an I&D in the OR which the patient refused due to fears of scarring. Afebrile with a white count of 14. She is tachycardic. She is currently receiving vancomycin and Zosyn. Blood and urine cultures are thus far negative. Imaging personally reviewed: CXR - normal Review of Systems: Bold if positive, otherwise negative General: fevers, chills, rigors HEENT: visual disturbance, diplopia, eye pain Respiratory: cough, sputum, hemoptysis, shortness of breath Cardiovascular: chest pain, syncope Gastrointestinal: nausea, vomiting, diarrhea, abdominal pain Genitourinary: dysuria, hematuria, flank pain Musculoskeletal: neck pain, back pain, joint pain, edema Neurologic: headaches, seizures Hematologic: easy bruising or bleeding Endocrine: night sweats, acute weight loss Skin: rash, jaundice, redness Psychiatric: suicidal, homicidal ideation Past History Past Medical History: No medical history, other (Reviewed) Past Surgical History: Other (buttock plastic surgery in [place] (08/12/19)) Social history: single. denies: smoking, alcohol abuse Family history: no significant family history Medications and Allergies Allergies Allergy/AdvReac Type Severity Reaction Status Date / Time No Known Allergies Allergy Verified 08/25/19 08:40 Home Medications Medication Instructions Recorded Confirmed Last Taken Type Amoxicillin/K Clav Tab 875 mg PO BID 08/25/19 08/25/19 Unknown History Bactrim DS TAB 800 mg PO BID 08/25/19 08/25/19 Unknown History Ondansetron [Zofran ODT TAB] 4 mg PO Q6H PRN 08/25/19 08/25/19 Unknown History oxyCODONE /ACETAMINOPHEN 7.5 - 325 mg PO Q4H PRN 08/25/19 08/25/19 Unknown History Active Meds: Active Medications Acetaminophen (Tylenol) 650 mg PO Q4H PRN PRN Reason: Pain MILD(1-3)/Fever >100.5/THOMPSON Enoxaparin Sodium (Enoxaparin) 40 mg SUB-Q QDAY@2200 KAVIN Piperacillin Sod/Tazobactam Sod (Zosyn/Ns 4.5gm/100ml) 4.5 gm in 100 mls @ 200 mls/hr IV Q8HR [facility]; Protocol Last Admin: 08/27/19 15:05 Dose: 200 mls/hr Documented by: Vancomycin HCl 1,250 mg/ (Sodium Chloride) 275 mls @ 166.667 mls/hr IV Q12H [facility] Last Admin: 08/27/19 11:16 Dose: 166.667 mls/hr Documented by: Morphine Sulfate (Morphine) 2 mg IV Q4H PRN PRN Reason: Pain, Moderate (4-6) Ondansetron HCl (Zofran) 4 mg IV Q8H PRN PRN Reason: Nausea And Vomiting Ondansetron HCl (Zofran Odt) 4 mg PO Q6H PRN PRN Reason: Nausea And Vomiting Oxycodone/Acetaminophen (Percocet 5/325) 1 tab PO Q6H PRN PRN Reason: Pain, Moderate (4-6) Last Admin: 08/27/19 11:48 Dose: 1 tab Documented by: Sodium Chloride (Sodium Chloride Flush Syringe 10 Ml) 10 ml IV BID KAVIN Sodium Chloride (Sodium Chloride Flush Syringe 10 Ml) 10 ml IV PRN PRN PRN Reason: LINE FLUSH Physical Examination - Physical Exam Narrative exam: Constitutional: Alert, cooperative. No acute distress Head, Ears, Nose: Normocephalic, atraumatic. External ears, nose normal Eyes: Conjunctivae/corneas clear. No icterus. No ptosis. Neck: Supple, no meningeal signs Oral: dentition fair, no thrush Cardiovascular: S1, S2 normal. Respiratory: Good air entry, clear to auscultation bilaterally GI: Soft, non-tender; bowel sounds normal. No peritoneal signs. Musculoskeletal: bilateral hip/gluteal induration/tenderness/swelling Skin: No rash or abscess Hem/Lymphatic: No palpable cervical or supraclavicular nodes. No lymphangitis Psych: Mood ok. Affect normal Neurological: Awake, alert, oriented. No gross abnormality - Constitutional Vitals: Vital Signs Temp Pulse Resp BP Pulse Ox 98.9 F 108 H 19 98/42 98 08/27/19 11:19 08/27/19 11:19 08/27/19 11:19 08/27/19 11:19 08/27/19 11:19 Temperature -Last 24 Hours Temperature 98.9 F Temperature 98.0 F Temperature 98.0 F Results - Labs CBC & Chem 7: 08/27/19 08:28 08/25/19 09:10 Labs: Abnormal lab results 08/27/19 Range/Units 08:28 WBC 14.5 H (4.5-11.0) K/mm3 RBC 2.86 L (3.65-5.03) M/mm3 Hgb 7.7 L (10.1-14.3) gm/dl Hct 24.0 L (30.3-42.9) % MCH 27 L (28-32) pg RDW 15.8 H (13.2-15.2) % Plt Count 774 H (140-440) K/mm3 Seg Neuts % (Manual) 71.0 H (40.0-70.0) % Seg Neutrophils # Man 10.3 H (1.8-7.7) K/mm3 Assessment and Plan Cultures: 08/25/2019 blood cultures - pending 08/25/2019 urine cultures - no growth A&P: 34 yo F no PMHx admitted with gluteal abscess after having recent plastic surgery #Acute sepsis - present with tachycardia and leukocytosis, secondary to abscess #2 #Gluteal abscess - agree with surgical recommendation for I&D in the OR. High risk of developing worsening abscess or metastatic infection with risk of limb loss or . Would continue IV antibiotics for now, exchange Zosyn fro cefepime/Flagyl to avoid nephrotoxicity of vanc/Zosyn combo. She is now amenable to surgery on my interview with her. She also reports the contralateral side is now developing similar symptoms. Recommend US of that side, and potential I&D as well if abscess is seen. Most likely Staph/Strep as causative agent given quick timecourse, however plastic surgery infections can be assocaite with AFB. Recommendations: - stop Zosyn - start cefepime 2g q8h - start metronidazole 500mg q8h - continue vancomycin dosed per pharmacy. Goal trough 10-20 - surgical I&D - USS of the left gluteus to r/o abscess - please obtain intra-operative bacterial, fungal, AFB cultures Thank you for the consult, we will continue to follow. Marlyn Oakes MD [facility] M: [phone] O: [phone] F: [phone]
--- NOTE | 2019-08-27 16:59 | Progress Note ---
Assessment and Plan Assessment and plan: 34-year-old woman who recently underwent Italian butt lift. She had liposuction from her abdominal area and had fat transfer to her bottom. She presents with swelling pain and drainage from the right side of her thigh. She is also having swelling and fluctuance of left thigh. Cellulitis/abscess -Unfortunately this is unexpected adverse outcome of the surgery Continue empiric antibiotics. Patient is not improving I have discussed with patient that she needs surgery, she has now consented. Patient is planned for surgery tomorrow for I&D Sepsis Continue sepsis protocol DVT prophylaxis; frequent ambulation History Interval history: Continues to complain of drainage from right upper lateral thigh and swelling of left upper lateral thigh Review of systems Constitutional: No fevers, no malaise, no joint pains CVS: No chest pain, no orthopnea, no pedal edema GI: No abdominal pain, no diarrhea, no vomiting, no constipation Respiratory: , no wheezing, no coughing Hospitalist Physical - Physical exam Narrative exam: General.: Appears well, no distress, nontoxic HEENT: Moist mucous membranes, extraocular muscles intact, no lymphadenopathy Neck: supple Cardiac: S1-S2 heard Lungs: clear to auscultation bilaterally Abdomen: soft , nontender, nondistended, bowel sounds positive Extremities: no edema clubbing or cyanosis Skin: Induration around the buttock/thigh, there is a dressing on the right side which was not removed, and has recently been packed. But on the left side there is fluctuance Neurologic: no gross focal deficits Psych: calm, and cooperative - Constitutional Vitals: Temp Pulse Resp BP Pulse Ox 98.9 F 108 H 19 98/42 98 08/27/19 11:19 08/27/19 11:19 08/27/19 11:19 08/27/19 11:19 08/27/19 11:19 General appearance: Present: mild distress Results - Labs CBC & Chem 7: 08/27/19 08:28 08/25/19 09:10 Labs: Laboratory Last Values WBC 14.5 K/mm3 (4.5-11.0) H 08/27/19 08:28 RBC 2.86 M/mm3 (3.65-5.03) L 08/27/19 08:28 Hgb 7.7 gm/dl (10.1-14.3) L 08/27/19 08:28 Hct 24.0 % (30.3-42.9) L 08/27/19 08: MCV 84 fl (79-97) 08/27/19 08: MCH 27 pg (28-32) L 08/27/19 08: MCHC 32 % (30-34) 08/27/19: RDW 15.8 % (13.2-15.2) H 08/27/19 08: Plt Count 774 K/mm3 (140-440) H 08/27/19 08: Add Manual Diff Complete 08/27/19: Total Counted 100 08/27/19 08: Seg Neuts % (Manual) 71.0 % (40.0-70.0) H 08/27/19: Band Neutrophils % 0 % 08/27/19 08:28 Lymphocytes % (Manual) 22.0 % (13.4-35.0) 08/27/19 08: Reactive Lymphs % (Man) 0 % 08/27/19 08: Monocytes % (Manual) 5.0 % (0.0-7.3) 08/27/19 08: Eosinophils % (Manual) 0 % (0.0-4.3) 08/27/19 08: Basophils % (Manual) 0 % (0.0-1.8) 08/27/19 08: Metamyelocytes % 2.0 % 08/27/19 08:28 Myelocytes % 0 % 08/27/19 08:28 Promyelocytes % 0 % 08/27/19 08:28 Blast Cells % 0 % 08/27/19 08: Nucleated RBC % Not Reportable 08/27/19 08: Seg Neutrophils # Man 10.3 K/mm3 (1.8-7.7) H 08/27/19 08:28 Band Neutrophils # 0.0 K/mm3 08/27/19 08:28 Lymphocytes # (Manual) 3.2 K/mm3 (1.2-5.4) 08/27/19 08:28 Abs React Lymphs (Man) 0.0 K/mm3 08/27/19 08:28 Monocytes # (Manual) 0.7 K/mm3 (0.0-0.8) 08/27/19 08:28 Eosinophils # (Manual) 0.0 K/mm3 (0.0-0.4) 08/27/19 08:28 Basophils # (Manual) 0.0 K/mm3 (0.0-0.1) 08/27/19 08:28 Metamyelocytes # 0.3 K/mm3 08/27/19 08:28 Myelocytes # 0.0 K/mm3 08/27/19 08:28 Promyelocytes # 0.0 K/mm3 08/27/19 08:28 Blast Cells # 0.0 K/mm3 08/27/19 08:28 WBC Morphology Not Reportable 08/27/19 08:28 Hypersegmented Neuts Not Reportable 08/27/19 08:28 Hyposegmented Neuts Not Reportable 08/27/19 08:28 Hypogranular Neuts Not Reportable 08/27/19 08:28 Smudge Cells Not Reportable 08/27/19 08:28 Toxic Granulation Not Reportable 08/27/19 08:28 Toxic Vacuolation Not Reportable 08/27/19 08:28 Dohle Bodies Not Reportable 08/27/19 08:28 Pelger-Huet Anomaly Not Reportable 08/27/19 08:28 David Rods Not Reportable 08/27/19 08:28 Platelet Estimate Consistent w auto 08/27/19 08:28 Clumped Platelets Not Reportable 08/27/19 08:28 Plt Clumps, EDTA Not Reportable 08/27/19 08:28 Large Platelets Not Reportable 08/27/19 08:28 Giant Platelets Not Reportable 08/27/19 08:28 Platelet Satelliting Not Reportable 08/27/19 08:28 Plt Morphology Comment Not Reportable 08/27/19 08:28 RBC Morphology Not Reportable 08/27/19 08:28 Dimorphic RBCs Not Reportable 08/27/19 08:28 Polychromasia Few 08/27/19 08:28 Hypochromasia Rare 08/27/19 08:28 Poikilocytosis Not Reportable 08/27/19 08:28 Anisocytosis Few 08/27/19 08:28 Microcytosis Not Reportable 08/27/19 08:28 Macrocytosis Not Reportable 08/27/19 08:28 Spherocytes Not Reportable 08/27/19 08:28 Pappenheimer Bodies Not Reportable 08/27/19 08:28 Sickle Cells Not Reportable 08/27/19 08:28 Target Cells Not Reportable 08/27/19 08:28 Tear Drop Cells Rare 08/27/19 08:28 Ovalocytes Rare 08/27/19 08:28 Stomatocytes Few 08/25/19 09:10 Helmet Cells Not Reportable 08/27/19 08:28 [place] Bodies Not Reportable 08/27/19 08:28 [place] Rings Not Reportable 08/27/19 08:28 [place] Cells Not Reportable 08/27/19 08:28 Bite Cells Not Reportable 08/27/19 08:28 Crenated Cell Not Reportable 08/27/19 08:28 Elliptocytes Not Reportable 08/27/19 08:28 Acanthocytes (Spur) Not Reportable 08/27/19 08:28 Rouleaux Not Reportable 08/27/19 08:28 Hemoglobin C Crystals Not Reportable 08/27/19 08:28 Schistocytes Not Reportable 08/27/19 08:28 Malaria parasites Not Reportable 08/27/19 08:28 Jose E Bodies Not Reportable 08/27/19 08:28 Hem Pathologist Commnt No 08/27/19 08:28 PT 14.1 Sec. (12.2-14.9) 08/25/19 09:10 INR 1.08 (0.87-1.13) 08/25/19 09:10 VBG pH 7.394 (7.320-7.420) 08/25/19 09:10 Sodium 134 mmol/L (137-145) L 08/25/19 09:10 Potassium 4.4 mmol/L (3.6-5.0) 08/25/19 09:10 Chloride 95.5 mmol/L (98-107) L 08/25/19 09:10 Carbon Dioxide 23 mmol/L (22-30) 08/25/19 09:10 Anion Gap 20 mmol/L 08/25/19 09:10 BUN 5 mg/dL (7-17) L 08/25/19 09:10 Creatinine 0.8 mg/dL (0.7-1.2) 08/25/19 09:10 Estimated GFR > 60 ml/min 08/25/19 09:10 BUN/Creatinine Ratio 6 % 08/25/19 09:10 Glucose 101 mg/dL (65-100) H 08/25/19 09:10 Lactic Acid 1.90 mmol/L (0.7-2.0) 08/25/19 14:34 Calcium 9.6 mg/dL (8.4-10.2) 08/25/19 09:10 Total Bilirubin 0.40 mg/dL (0.1-1.2) 08/25/19 09:10 AST 26 units/L (5-40) 08/25/19 09:10 ALT 26 units/L (7-56) 08/25/19 09:10 Alkaline Phosphatase 101 units/L (35-129) 08/25/19 09:10 Total Protein 8.0 g/dL (6.3-8.2) 08/25/19 09:10 Albumin 3.2 g/dL (3.9-5) L 08/25/19 09:10 Albumin/Globulin Ratio 0.7 % 08/25/19 09:10 HCG, Qual Negative (Negative) 08/25/19 12:29 Urine Color Myrna (Yellow) 08/25/19 11:30 Urine Turbidity Slightly-cloudy (Clear) 08/25/19 11:30 Urine pH 6.0 (5.0-7.0) 08/25/19 11:30 Ur Specific [place] 1.020 (1.003-1.030) 08/25/19 11:30 Urine Protein 30 mg/dl mg/dL (Negative) 08/25/19 11:30 Urine Glucose (UA) Neg mg/dL (Negative) 08/25/19 11:30 Urine Ketones Neg mg/dL (Negative) 08/25/19 11:30 Urine Blood Neg (Negative) 08/25/19 11:30 Urine Nitrite Neg (Negative) 08/25/19 11:30 Urine Bilirubin Neg (Negative) 08/25/19 11:30 Urine Urobilinogen 4.0 mg/dL (<2.0) 08/25/19 11:30 Ur Leukocyte Esterase Tr (Negative) 08/25/19 11:30 Urine WBC (Auto) 6.0 /HPF (0.0-6.0) 08/25/19 11:30 Urine RBC (Auto) 4.0 /HPF (0.0-6.0) 08/25/19 11:30 U Epithel Cells (Auto) 11.0 /HPF (0-13.0) 08/25/19 11:30 Urine Mucus Few /HPF 08/25/19 11:30 Blood Type O POSITIVE 08/25/19 12:29 Antibody Screen Negative 08/25/19 12:29 Crossmatch See Detail 08/25/19 12:29 Active Medications - Current Medications Current Medications: Generic Name Dose Route Start Last Admin Trade Name Freq PRN Reason Stop Dose Admin Acetaminophen 650 mg 08/27/19 11:28 Tylenol PO Q4H PRN Pain MILD(1-3)/Fever >100.5/THOMPSON Enoxaparin Sodium 40 mg 08/27/19 22:00 Enoxaparin SUB-Q QDAY@2200 KAVIN Vancomycin HCl 1,250 mg/ 275 mls @ 166.667 mls/hr 08/26/19 12:00 08/27/19 11:16 Sodium Chloride IV 166.667 mls/hr Q12H KAVIN Administration Cefepime HCl 2 gm in 100 mls @ 200 mls/hr 08/27/19 22:00 Cefepime/Ns 2 Gm/100 Ml IV Q8HR KAVIN Protocol Metronidazole 500 mg in 100 mls @ 100 mls/hr 08/27/19 22:00 Flagyl 500 Mg/100 Ml IV Q8HR [facility] Protocol Morphine Sulfate 2 mg 08/27/19 11:28 Morphine IV Q4H PRN Pain, Moderate (4-6) Ondansetron HCl 4 mg 08/27/19 11:28 Zofran IV Q8H PRN Nausea And Vomiting Ondansetron HCl 4 mg 08/27/19 11:34 Zofran Odt PO Q6H PRN Nausea And Vomiting Oxycodone/Acetaminophen 1 tab 08/27/19 11:28 08/27/19 11:48 Percocet 5/325 PO 1 tab Q6H PRN Administration Pain, Moderate (4-6) Sodium Chloride 10 ml 08/27/19 22:00 Sodium Chloride Flush Syringe 10 Ml IV BID KAVIN Sodium Chloride 10 ml 08/27/19 11:28 Sodium Chloride Flush Syringe 10 Ml IV PRN PRN LINE FLUSH Nutrition/Malnutrition Assess - Dietary Evaluation Nutrition/Malnutrition Findings: Nutrition Notes Start: 08/26/19 14:21 Freq: Status: Active Protocol: Document 08/26/19 14:21 LM (Rec: 08/26/19 14:32 LM [id number]) Nutrition Notes 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 Pt does not require TF or TPN. 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 Pt stated she was hungry. Pt NPO at time of visit, but informed pt she would get lunch. Pt with abcess from surgury. Burn Absent Trauma Absent GI Symptoms None Current % PO Negligible Minimum of two criteria No #1 Nutrition Diagnosis Increased nutrient needs ( specify in comment below) Comments: protein Etiology wound healing As Evidenced by Signs and Symptoms pt with surgical wound, abcess to lateral hip Is patient on ventilator? No Is Patient Ambulatory and/or Out of Bed No REE-([place]-St. Jeor-confined to bed) [phone] Calculation Used for Recommendations [place]-St Jeor Additional Notes Protein: 101-122g (1.25-1.5g/ kg) Fluid: 1 ml/kcal Nutrition Intervention Change Diet Order: Regular Goal #1 Meet at least 75% of energy and protein needs Anticipated Discharge Needs: regular diet Follow-Up By: 08/28/19 Additional Comments F/U for intakes
[2019-08-27] MEDS: CEFEPIME/NS 2 GM/100 ML 2 GM/100 ML BAG IV SCH (21:41)
[2019-08-27] MEDS: ENOXAPARIN 40 MG/0.4 ML INJ SUB-Q SCH (21:41)
[2019-08-27] MEDS: metroNIDAZOLE/NS 500 MG/100 ML 500 MG/100 ML BAG IV SCH (21:43)
[2019-08-28] MEDS: VANCOMYCIN 1,250 MG in SODIUM CHLORIDE 0.9% 250ML 250 ML IV SCH ×3 (00:01→23:13)
[2019-08-28] MEDS: oxyCODONE /ACETAMINOPHEN 5-325MG TAB PO PRN ×4 (00:34→23:49)
[2019-08-28] MEDS: CEFEPIME/NS 2 GM/100 ML 2 GM/100 ML BAG IV SCH ×3 (05:09→21:01)
[2019-08-28] MEDS: metroNIDAZOLE/NS 500 MG/100 ML 500 MG/100 ML BAG IV SCH ×3 (05:10→21:48)
[2019-08-28 07:55] LABS: Hematocrit 23.5 % (30.3-42.9); Hemoglobin 7.5 gm/dl (10.1-14.3); Mean Corpuscular HGB Conc 32 % (30-34); Mean Corpuscular Volume 83 fl (79-97); Platelet Count 703 K/mm3 (140-440); Red Blood Count 2.82 M/mm3 (3.65-5.03); Red Cell Distribution Width 15.6 % (13.2-15.2)
[2019-08-28 08:12] LABS: BUN/Creatinine Ratio 8; Blood Urea Nitrogen 7 mg/dL (7-17); Calcium 9.4 mg/dL (8.4-10.2); Hemolysis Index 6
[2019-08-28 08:47] LABS: Anisocytosis Few; Basophils % (Manual) 0 % (0.0-1.8); Hypochromasia Rare; Total Cells Counted 100
[2019-08-28 08:48] LABS: Ovalocytes Rare; Platelet Estimate Consistent w Auto; Tear Drop Cells Rare
--- NOTE | 2019-08-28 09:30 | Ultrasound Report ---
Ultrasound of the soft tissues of the left gluteal region INDICATION: Clinical suspicion of gluteal abscess FINDINGS: Subcutaneous edema is noted in the left gluteal region in the area of interest. No discrete abscess o r fluid collection is identified in the area of abscess in the left gluteal region on today's study. Signer Name: Satya Bui MD Signed: 08/28/2019 9:25 AM Workstation Name: [id number]
--- NOTE | 2019-08-28 13:38 | Progress Note ---
Assessment and Plan Cultures: 08/25/2019 blood cultures - pending 08/25/2019 urine cultures - no growth A&P: 34 yo F no PMHx admitted with gluteal abscess after having recent plastic surgery #Acute sepsis - present with tachycardia and leukocytosis, secondary to abscess #2 #Gluteal abscess - agree with surgical recommendation for I&D in the OR. High risk of developing worsening abscess or metastatic infection with risk of limb loss or . Would continue IV antibiotics for now, exchange Zosyn fro cefe pime/Flagyl to avoid nephrotoxicity of vanc/Zosyn combo. She is now amenable to surgery on my interview with her. She also reports the contralateral side is now developing similar symptoms. No abscess on contralateral side. Most likely Staph/Strep as causative agent given quick timecourse, however plastic surgery infections can be assocaite with AFB. Recommendations: - stop Zosyn - start cefepime 2g q8h - start metronidazole 500mg q8h - continue vancomycin dosed per pharmacy. Goal trough 10-20 - surgical I&D - please obtain intra-operative bacterial, fungal, AFB cultures Thank you for the consult, we will continue to follow. Marlyn Oakes MD [facility] M: [phone] O: [phone] F: [phone] Subjective Date of service: 08/28/19 Interval history: Afebrile, normal white count. Ongoing pain. Objective - Exam Narrative Exam: Constitutional: Alert, cooperative. No acute distress Head, Ears, Nose: Normocephalic, atraumatic. External ears, nose normal Eyes: Conjunctivae/corneas clear. No icterus. No ptosis. Neck: Supple, no meningeal signs Oral: dentition fair, no thrush Cardiovascular: S1, S2 normal. Respiratory: Good air entry, clear to auscultation bilaterally GI: Soft, non-tender; bowel sounds normal. No peritoneal signs. Musculoskeletal: bilateral hip/gluteal induration/tenderness/swelling. R>L Skin: No rash or abscess Hem/Lymphatic: No palpable cervical or supraclavicular nodes. No lymphangitis Psych: Mood ok. Affect normal Neurological: Awake, alert, oriented. No gross abnormality - Constitutional Vitals: Vital Signs Temp Pulse Resp BP Pulse Ox 98.0 F 94 H 18 90/45 98 08/28/19 05:37 08/28/19 05:37 08/28/19 05:37 08/28/19 05:37 08/28/19 05:37 Temperature -Last 24 Hours Temperature 98.0 F Temperature 99.3 F Temperature 98.5 F - Labs CBC & Chem 7: 08/28/19 07:08 08/28/19 07:08 Labs: Abnormal lab results 08/28/19 Range/Units 07:08 WBC 13.9 H (4.5-11.0) K/mm3 RBC 2.82 L (3.65-5.03) M/mm3 Hgb 7.5 L (10.1-14.3) gm/dl Hct 23.5 L (30.3-42.9) % MCH 27 L (28-32) pg RDW 15.6 H (13.2-15.2) % Plt Count 703 H (140-440) K/mm3 Seg Neuts % (Manual) 76.0 H (40.0-70.0) % Lymphocytes % (Manual) 12.0 L (13.4-35.0) % Eosinophils % (Manual) 5.0 H (0.0-4.3) % Seg Neutrophils # Man 10.6 H (1.8-7.7) K/mm3 Eosinophils # (Manual) 0.7 H (0.0-0.4) K/mm3
--- NOTE | 2019-08-28 13:59 | Progress Note ---
Assessment and Plan - Patient Problems (1) Surgical wound infection Current Visit: Yes Status: Acute Plan to address problem: Pt stable. Last night, after talking to the hospitalist, the patient finally agreed for surgery. Today, she asked me if we still need to move forward with surgery. I reminded her that I recommended surgery the first day that we met. I also reminded her that it is her decision. If she should decide to go home on antibiotics, then I strongly recommend that she get to [place] as soon as possible so that she and her plastic surgeon can deal with these wounds. She ultimately agreed to have surgery here. Procedure, risks, benefits were discussed. All questions were answered. Consent was obtained. Near the end of our discussion, she told me that it is important that the wounds look good after we are done. I told her that I understand that the appearance is very important to her, but my first priority is to thoroughly clean out any infection to protect her health. The appearance will be a secondary issue for the future. She acknowledged understanding. Patient scheduled for surgery tomorrow at 0800. Please call with questions. time=10min Subjective Date of service: 08/28/19 Patient Reports: Positive: no new complaints, feels better, other (the left leg area started to drain from the incision site) Objective Vital Signs - 12hr 08/28/19 05:37 Temperature 98.0 F Pulse Rate 94 H Respiratory 18 Rate Blood Pressure 90/45 O2 Sat by Pulse 98 Oximetry - General physical appearance no distress, no pain, other (looks slightly better) - Respiratory normal expansion, normal respiratory effort - Integumentary other (induration noted on both posterior thighs (L>R). +drainage) - Psychiatric oriented to time, oriented to person, oriented to place, speech is normal, memory intact - Labs 08/28/19 07:08 08/28/19 07:08 Diabetes panel 08/28/19 Range/Units 07:08 Sodium 142 D (137-145) mmol/L Potassium 4.5 (3.6-5.0) mmol/L Chloride 104.2 (98-107) mmol/L Carbon Dioxide 22 (22-30) mmol/L BUN 7 (7-17) mg/dL Creatinine 0.9 (0.7-1.2) mg/dL Glucose 92 (65-100) mg/dL Calcium 9.4 (8.4-10.2) mg/dL Calcium panel 08/28/19 Range/Units 07:08 Calcium 9.4 (8.4-10.2) mg/dL Pituitary panel 08/28/19 Range/Units 07:08 Sodium 142 D (137-145) mmol/L Potassium 4.5 (3.6-5.0) mmol/L Chloride 104.2 (98-107) mmol/L Carbon Dioxide 22 (22-30) mmol/L BUN 7 (7-17) mg/dL Creatinine 0.9 (0.7-1.2) mg/dL Glucose 92 (65-100) mg/dL Calcium 9.4 (8.4-10.2) mg/dL Adrenal panel 08/28/19 Range/Units 07:08 Sodium 142 D (137-145) mmol/L Potassium 4.5 (3.6-5.0) mmol/L Chloride 104.2 (98-107) mmol/L Carbon Dioxide 22 (22-30) mmol/L BUN 7 (7-17) mg/dL Creatinine 0.9 (0.7-1.2) mg/dL Glucose 92 (65-100) mg/dL Calcium 9.4 (8.4-10.2) mg/dL - Imaging Additional Studies: US report reviewed of left thigh
--- NOTE | 2019-08-28 15:28 | Progress Note ---
Assessment and Plan Assessment and plan: 34-year-old woman who recently underwent [place] butt lift. She had liposuction from her abdominal area and had fat transfer to her bottom. She presents with swelling pain and drainage from the right side of her thigh. She is also having swelling and fluctuance of left thigh. Cellulitis/abscess -Unfortunately this is unexpected adverse outcome of the surgery -She was not able to get OR time today Continue empiric antibiotics. Patient is not improving I have discussed with patient that she needs surgery, she has now consented. Patient is planned for surgery tomorrow at 8 AM for I&D Sepsis Continue sepsis protocol DVT prophylaxis; frequent ambulation History Interval history: Continues to complain of drainage from right upper lateral thigh and swelling of left upper lateral thigh Review of systems Constitutional: No fevers, no malaise, no joint pains CVS: No chest pain, no orthopnea, no pedal edema GI: No abdominal pain, no diarrhea, no vomiting, no constipation Respiratory: , no wheezing, no coughing Hospitalist Physical - Physical exam Narrative exam: General.: Appears well, no distress, nontoxic HEENT: Moist mucous membranes, extraocular muscles intact, no lymphadenopathy Neck: supple Cardiac: S1-S2 heard Lungs: clear to auscultation bilaterally Abdomen: soft , nontender, nondistended, bowel sounds positive Extremities: no edema clubbing or cyanosis Skin: Induration around the buttock/thigh, there is a dressing on the right side which was not removed, and has recently been packed. But on the left side there is fluctuance Neurologic: no gross focal deficits Psych: calm, and cooperative - Constitutional Vitals: Temp Pulse Resp BP Pulse Ox 99.2 F 105 H 16 90/64 98 08/28/19 12:27 08/28/19 12:27 08/28/19 12:27 08/28/19 12:27 08/28/19 12:27 General appearance: Present: mild distress Results - Labs CBC & Chem 7: 08/28/19 07:08 08/28/19 07:08 Labs: Laboratory Last Values WBC 13.9 K/mm3 (4.5-11.0) H 08/28/19 07:08 RBC 2.82 M/mm3 (3.65-5.03) L 08/28/19 07:08 Hgb 7.5 gm/dl (10.1-14.3) L 08/28/19 07:08 Hct 23.5 % (30.3-42.9) L 08/28/19 07:08 MCV 83 fl (79-97) 08/28/19 07:08 MCH 27 pg (28-32) L 08/28/19 07:08 MCHC 32 % (30-34) 08/28/19 07:08 RDW 15.6 % (13.2-15.2) H 08/28/19 07:08 Plt Count 703 K/mm3 (140-440) H 08/28/19 07:08 Add Manual Diff Complete 08/28/19 07:08 Total Counted 100 08/28/19 07:08 Seg Neuts % (Manual) 76.0 % (40.0-70.0) H 08/28/19 07:08 Band Neutrophils % 0 % 08/28/19 07:08 Lymphocytes % (Manual) 12.0 % (13.4-35.0) L 08/28/19 07:08 Reactive Lymphs % (Man) 0 % 08/28/19 07:08 Monocytes % (Manual) 5.0 % (0.0-7.3) 08/28/19 07:08 Eosinophils % (Manual) 5.0 % (0.0-4.3) H 08/28/19 07:08 Basophils % (Manual) 0 % (0.0-1.8) 08/28/19 07:08 Metamyelocytes % 2.0 % 08/28/19 07:08 Myelocytes % 0 % 08/28/19 07:08 Promyelocytes % 0 % 08/28/19 07:08 Blast Cells % 0 % 08/28/19 07:08 Nucleated RBC % Not Reportable 08/28/19 07:08 Seg Neutrophils # Man 10.6 K/mm3 (1.8-7.7) H 08/28/19 07:08 Band Neutrophils # 0.0 K/mm3 08/28/19 07:08 Lymphocytes # (Manual) 1.7 K/mm3 (1.2-5.4) 08/28/19 07:08 Abs React Lymphs (Man) 0.0 K/mm3 08/28/19 07:08 Monocytes # (Manual) 0.7 K/mm3 (0.0-0.8) 08/28/19 07:08 Eosinophils # (Manual) 0.7 K/mm3 (0.0-0.4) H 08/28/19 07:08 Basophils # (Manual) 0.0 K/mm3 (0.0-0.1) 08/28/19 07:08 Metamyelocytes # 0.3 K/mm3 08/28/19 07:08 Myelocytes # 0.0 K/mm3 08/28/19 07:08 Promyelocytes # 0.0 K/mm3 08/28/19 07:08 Blast Cells # 0.0 K/mm3 08/28/19 07:08 WBC Morphology Not Reportable 08/28/19 07:08 Hypersegmented Neuts Not Reportable 08/28/19 07:08 Hyposegmented Neuts Not Reportable 08/28/19 07:08 Hypogranular Neuts Not Reportable 08/28/19 07:08 Smudge Cells Not Reportable 08/28/19 07:08 Toxic Granulation Not Reportable 08/28/19 07:08 Toxic Vacuolation Not Reportable 08/28/19 07:08 Dohle Bodies Not Reportable 08/28/19 07:08 Pelger-Huet Anomaly Not Reportable 08/28/19 07:08 David Rods Not Reportable 08/28/19 07:08 Platelet Estimate Consistent w auto 08/28/19 07:08 Clumped Platelets Not Reportable 08/28/19 07:08 Plt Clumps, EDTA Not Reportable 08/28/19 07:08 Large Platelets Not Reportable 08/28/19 07:08 Giant Platelets Not Reportable 08/28/19 07:08 Platelet Satelliting Not Reportable 08/28/19 07:08 Plt Morphology Comment Not Reportable 08/28/19 07:08 RBC Morphology Not Reportable 08/28/19 07:08 Dimorphic RBCs Not Reportable 08/28/19 07:08 Polychromasia Few 08/28/19 07:08 Hypochromasia Rare 08/28/19 07:08 Poikilocytosis Not Reportable 08/28/19 07:08 Anisocytosis Few 08/28/19 07:08 Microcytosis Not Reportable 08/28/19 07:08 Macrocytosis Not Reportable 08/28/19 07:08 Spherocytes Not Reportable 08/28/19 07:08 Pappenheimer Bodies Not Reportable 08/28/19 07:08 Sickle Cells Not Reportable 08/28/19 07:08 Target Cells Not Reportable 08/28/19 07:08 Tear Drop Cells Rare 08/28/19 07:08 Ovalocytes Rare 08/28/19 07:08 Stomatocytes Few 08/25/19 09:10 Helmet Cells Not Reportable 08/28/19 07:08 Luna-[place] Bodies Not Reportable 08/28/19 07:08 [place] Rings Not Reportable 08/28/19 07:08 Reji Cells Not Reportable 08/28/19 07:08 Bite Cells Not Reportable 08/28/19 07:08 Crenated Cell Not Reportable 08/28/19 07:08 Elliptocytes Not Reportable 08/28/19 07:08 Acanthocytes (Spur) Not Reportable 08/28/19 07:08 Rouleaux Not Reportable 08/28/19 07:08 Hemoglobin C Crystals Not Reportable 08/28/19 07:08 Schistocytes Not Reportable 08/28/19 07:08 Malaria parasites Not Reportable 08/28/19 07:08 Jose E Bodies Not Reportable 08/28/19 07:08 Hem Pathologist Commnt No 08/28/19 07:08 PT 14.1 Sec. (12.2-14.9) 08/25/19 09:10 INR 1.08 (0.87-1.13) 08/25/19 09:10 VBG pH 7.394 (7.320-7.420) 08/25/19 09:10 Sodium 142 mmol/L (137-145) D 08/28/19 07:08 Potassium 4.5 mmol/L (3.6-5.0) 08/28/19 07:08 Chloride 104.2 mmol/L (98-107) 08/28/19 07:08 Carbon Dioxide 22 mmol/L (22-30) 08/28/19 07:08 Anion Gap 20 mmol/L 08/28/19 07:08 BUN 7 mg/dL (7-17) 08/28/19 07:08 Creatinine 0.9 mg/dL (0.7-1.2) 08/28/19 07:08 Estimated GFR > 60 ml/min 08/28/19 07:08 BUN/Creatinine Ratio 8 % 08/28/19 07:08 Glucose 92 mg/dL (65-100) 08/28/19 07:08 Lactic Acid 1.90 mmol/L (0.7-2.0) 08/25/19 14:34 Calcium 9.4 mg/dL (8.4-10.2) 08/28/19 07:08 Total Bilirubin 0.40 mg/dL (0.1-1.2) 08/25/19 09:10 AST 26 units/L (5-40) 08/25/19 09:10 ALT 26 units/L (7-56) 08/25/19 09:10 Alkaline Phosphatase 101 units/L (35-129) 08/25/19 09:10 Total Protein 8.0 g/dL (6.3-8.2) 08/25/19 09:10 Albumin 3.2 g/dL (3.9-5) L 08/25/19 09:10 Albumin/Globulin Ratio 0.7 % 08/25/19 09:10 HCG, Qual Negative (Negative) 08/25/19 12:29 Urine Color Myrna (Yellow) 08/25/19 11:30 Urine Turbidity Slightly-cloudy (Clear) 08/25/19 11:30 Urine pH 6.0 (5.0-7.0) 08/25/19 11:30 Ur Specific [place] 1.020 (1.003-1.030) 08/25/19 11:30 Urine Protein 30 mg/dl mg/dL (Negative) 08/25/19 11:30 Urine Glucose (UA) Neg mg/dL (Negative) 08/25/19 11:30 Urine Ketones Neg mg/dL (Negative) 08/25/19 11:30 Urine Blood Neg (Negative) 08/25/19 11:30 Urine Nitrite Neg (Negative) 08/25/19 11:30 Urine Bilirubin Neg (Negative) 08/25/19 11:30 Urine Urobilinogen 4.0 mg/dL (<2.0) 08/25/19 11:30 Ur Leukocyte Esterase Tr (Negative) 08/25/19 11:30 Urine WBC (Auto) 6.0 /HPF (0.0-6.0) 08/25/19 11:30 Urine RBC (Auto) 4.0 /HPF (0.0-6.0) 08/25/19 11:30 U Epithel Cells (Auto) 11.0 /HPF (0-13.0) 08/25/19 11:30 Urine Mucus Few /HPF 08/25/19 11:30 Vancomycin Trough 11.5 ug/mL (5.0-20.0) 08/28/19 11:39 Blood Type O POSITIVE 08/25/19 12:29 Antibody Screen Negative 08/25/19 12:29 Crossmatch See Detail 08/25/19 12:29 Active Medications - Current Medications Current Medications: Generic Name Dose Route Start Last Admin Trade Name Freq PRN Reason Stop Dose Admin Acetaminophen 650 mg 08/27/19 11:28 Tylenol PO Q4H PRN Pain MILD(1-3)/Fever >100.5/THOMPSON Enoxaparin Sodium 40 mg 08/27/19 22:00 08/27/19 21:41 Enoxaparin SUB-Q 40 mg QDAY@2200 KAVIN Administration Vancomycin HCl 1,250 mg/ 275 mls @ 166.667 mls/hr 08/26/19 12:00 08/28/19 14:40 Sodium Chloride IV 166.667 mls/hr Q12H KAVIN Administration Cefepime HCl 2 gm in 100 mls @ 200 mls/hr 08/27/19 22:00 08/28/19 14:39 Cefepime/Ns 2 Gm/100 Ml IV 200 mls/hr Q8HR KAVIN Administration Protocol Metronidazole 500 mg in 100 mls @ 100 mls/hr 08/27/19 22:00 08/28/19 14:40 Flagyl 500 Mg/100 Ml IV 100 mls/hr Q8HR KAVIN Administration Protocol Morphine Sulfate 2 mg 08/27/19 11:28 Morphine IV Q4H PRN Pain, Moderate (4-6) Ondansetron HCl 4 mg 08/27/19 11:28 Zofran IV Q8H PRN Nausea And Vomiting Ondansetron HCl 4 mg 08/27/19 11:34 Zofran Odt PO Q6H PRN Nausea And Vomiting Oxycodone/Acetaminophen 1 tab 08/27/19 11:28 08/28/19 11:52 Percocet 5/325 PO 1 tab Q6H PRN Administration Pain, Moderate (4-6) Sodium Chloride 10 ml 08/27/19 22:00 08/27/19 21:43 Sodium Chloride Flush Syringe 10 Ml IV 10 ml BID KAVIN Administration Sodium Chloride 10 ml 08/27/19 11:28 Sodium Chloride Flush Syringe 10 Ml IV PRN PRN LINE FLUSH Nutrition/Malnutrition Assess - Dietary Evaluation Nutrition/Malnutrition Findings: Nutrition Notes Start: 08/26/19 14:21 Freq: Status: Active Protocol: Document 08/28/19 12:19 CORBIN (Rec: 08/28/19 12:23 CORBIN [id number]) Co-Sign 08/28/19 12:19 LP Nutrition Notes Initial or Follow up Reassessment Other Pertinent Diagnosis surgical wound infection, R lateral hip abcess, s/p liposuction Current Diet Regular diet Labs/Tests Reviewed Pertinent Medications Reviewed Height 5 ft 6 in Weight 82.2 kg [place] Body Weight (kg) 59.09 BMI 29.2 Weight Status Overweight Subjective/Other Information F/U for PO intakes. Pt stated that her appetite was fair, but doesn't like the food here . 0% of breakfast was eaten. Preferences were taken. Pt stated that she ate all three meals yesterday, but some were brought in. Pt denied N/V Percent of energy/protein needs met: Unable to determine Burn Absent Trauma Absent GI Symptoms None Current % PO Negligible Minimum of two criteria No #1 Nutrition Diagnosis Increased nutrient needs ( specify in comment below) Comments: protein Diagnosis Progress(for reassessment Continues documentation) Is patient on ventilator? No Is Patient Ambulatory and/or Out of Bed Yes REE-([facility]-ambulatory/OOB) [ 2013.375 NUTR.MSJOOB] Calculation Used for Recommendations [facility] Additional Notes Protein: 103-123g (1.25-1.5g/ kg) Fluid: 1 ml/kcal Nutrition Intervention Change Diet Order: Regular Goal #1 Meet at least 75% of energy and protein needs Anticipated Discharge Needs: regular diet Follow-Up By: 09/03/19 Additional Comments F/U for stable intakes.
[2019-08-28] MEDS: ENOXAPARIN 40 MG/0.4 ML INJ SUB-Q SCH (23:11)
[2019-08-29] MEDS: CEFEPIME/NS 2 GM/100 ML 2 GM/100 ML BAG IV SCH ×2 (05:11→15:19)
[2019-08-29] MEDS: metroNIDAZOLE/NS 500 MG/100 ML 500 MG/100 ML BAG IV SCH ×2 (06:19→16:22)
[2019-08-29] MEDS ORDERED: MIDAZOLAM 2 MG/2 ML INJ IV NR (07:00)
[2019-08-29] MEDS: LACTATED RINGERS 1,000 ML IV SCH ×2 (07:15→13:32)
--- NOTE | 2019-08-29 07:48 | Anesthesia Day of Surgery ---
Anesthesia Day of Surgery - Day of Surgery Patient Examined: Yes Patient H&P Reviewed: Yes Patient is NPO: Yes Beta Blockers: No Cardiac Clearance: Yes Pulmonary Clearance: Yes Edenilson's Test: N/A
[2019-08-29] MEDS ORDERED: fentaNYL 250 MCG/5 ML INJ ONE (07:51)
[2019-08-29] MEDS ORDERED: NEOSTIGMINE 10MG/10 ML INJ MDV ONE (07:51)
[2019-08-29] MEDS ORDERED: PHENYLEPHRINE/NS 1,000 MCG/10 ML SYRINGE (OR USE) IV ONE (07:51)
[2019-08-29] MEDS ORDERED: ONDANSETRON 4 MG/2 ML INJ ONE (07:51)
[2019-08-29] MEDS ORDERED: LIDOCAINE MPF (2%) 20 MG/1 ML VIAL 5 ML ONE (07:51)
[2019-08-29] MEDS ORDERED: ROCURONIUM 50 MG/5 ML INJ IV ONE (07:51)
[2019-08-29] MEDS ORDERED: dexAMETHasone 20 MG/5 ML VIAL ONE (07:51)
[2019-08-29] MEDS ORDERED: PROPOFOL 200 MG/20 ML VIAL IV ONE (07:51)
[2019-08-29] MEDS ORDERED: SUCCINYLCHOLINE CHLORIDE 200 MG/10 ML INJ MDV ONE (07:51)
[2019-08-29] MEDS ORDERED: GLYCOPYRROLATE 0.4 MG/2 ML INJ ONE (07:51)
--- NOTE | 2019-08-29 07:52 | Anesthesia Consultation ---
Anesthesia Consult and Med Hx Date of service: 08/29/19 - Airway Anesthetic Teeth Evaluation: Good ROM Head & Neck: Adequate Mental/Hyoid Distance: Adequate Mallampati Class: Class I Intubation Access Assessment: Good - Pulmonary Exam CTA: Yes - Cardiac Exam Cardiac Exam: RRR - Pre-Operative Health Status ASA Pre-Surgery Classification: ASA2 Proposed Anesthetic Plan: General - Pre-Anesthesia Comment Pre-Anesthesia Comments: patient wasn't clear on story line but in short, BBL and liposuction on 08/12/19 in [place]; 08/18 - returned to [place] but started experiencing pain when sitting prolonged, 08/25 - arrived to ED with uncontrolled pain, was admitted for swelling c/w questionable abscess and on IV antibiotics since. No prior medical or surgery per patient. minimal social support - dad knows she is here. - Pulmonary Hx Pneumonia: No - Central Nervous System Hx Psychiatric Problems: No - Other Systems Hx Cancer: No
[2019-08-29] MEDS ORDERED: LIDOCAINE (1%) 10 MG/1 ML VIAL 20 ML MDV ONE (07:53)
[2019-08-29] MEDS ORDERED: BUPIVACAINE-EPINEPHRINE/PF 0.5%-1:200,000 (30 ML) VIAL INFILTRATI ONE ×2 (07:54→08:40)
[2019-08-29] MEDS ORDERED: MIDAZOLAM 2 MG/2 ML INJ ONE (08:25)
[2019-08-29] MEDS ORDERED: KETAMINE 500 MG/5 ML VIAL MDV ONE (08:26)
[2019-08-29] MEDS ORDERED: SODIUM CHLORIDE 0.9% IRR 1,500 ML BOTTLE IR ONE (08:40)
[2019-08-29] MEDS ORDERED: LIDOCAINE (1%) 10 MG/1 ML VIAL 20 ML MDV INFILTRATI ONE (08:40)
[2019-08-29] MEDS ORDERED: SODIUM CHLORIDE 0.9% IRRIG SOLN 3000 ML IR ONE (08:40)
--- NOTE | 2019-08-29 09:05 | Post Operative Note ---
Date of procedure: 08/29/19 (dictation:[id number]) Pre-op diagnosis: bilateral post-op abscesses Post-op diagnosis: same Findings: fairly clean wound on the right with necrotic skin liquified fat on the right Procedure: I&D with debridement bilateral thighs IVF 600cc EBL min Anesthesia: MAC Surgeon: BRIDGET MORE Estimated blood loss: minimal Pathology: list (surgical, anaerobic, fungal, and AFB cultures) Specimen disposition: to lab Condition: stable Disposition: PACU
[2019-08-29] MEDS ORDERED: ONDANSETRON 4 MG/2 ML INJ IV PRN (09:18)
[2019-08-29] MEDS ORDERED: fentaNYL 100 MCG/2 ML INJ IV PRN (09:18)
[2019-08-29] MEDS ORDERED: MORPHINE 2 MG/1 ML INJ IV PRN (09:18)
[2019-08-29] MEDS ORDERED: METOCLOPRAMIDE 10 MG/2 ML INJ IV PRN (09:18)
[2019-08-29] MEDS ORDERED: MEPERIDINE 25 MG/1 ML INJ IV PRN (09:18)
[2019-08-29] MEDS: oxyCODONE /ACETAMINOPHEN 5-325MG TAB PO PRN ×3 (09:50→21:28)
--- NOTE | 2019-08-29 13:11 | Progress Note ---
Assessment and Plan Assessment and plan: 34-year-old woman who recently underwent [place] butt lift. She had liposuction from her abdominal area and had fat transfer to her bottom. She presents with swelling pain and drainage from the right side of her thigh. She is also having swelling and fluctuance of left thigh. Plastic surgeon is Dr. Mcqueen in [place] Cellulitis/abscess -Unfortunately this is unexpected adverse outcome of the surgery -Status post I&D and debridement of bilateral thighs 08/29. Necrotic skin with liquefied fat was noted on the right side. Further management per general surgery. Continue antibiotics. ID consulted. Sepsis Continue sepsis protocol DVT prophylaxis; frequent ambulation History Interval history: Continues to complain of drainage from right upper lateral thigh and swelling of left upper lateral thigh Review of systems Constitutional: No fevers, no malaise, no joint pains CVS: No chest pain, no orthopnea, no pedal edema GI: No abdominal pain, no diarrhea, no vomiting, no constipation Respiratory: , no wheezing, no coughing Hospitalist Physical - Physical exam Narrative exam: General.: Appears well, no distress, nontoxic HEENT: Moist mucous membranes, extraocular muscles intact, no lymphadenopathy Neck: supple Cardiac: S1-S2 heard Lungs: clear to auscultation bilaterally Abdomen: soft , nontender, nondistended, bowel sounds positive Extremities: no edema clubbing or cyanosis Skin: Induration around the buttock/thigh, there is a dressing on the right side which was not removed, and has recently been packed. But on the left side there is fluctuance Neurologic: no gross focal deficits Psych: calm, and cooperative - Constitutional Vitals: Temp Pulse Resp BP Pulse Ox 98 F 86 18 118/69 100 08/29/19 09:45 08/29/19 10:00 08/29/19 10:10 08/29/19 10:00 08/29/19 10:00 General appearance: Present: mild distress Results - Labs CBC & Chem 7: 08/28/19 07:08 08/28/19 07:08 Labs: Laboratory Last Values WBC 13.9 K/mm3 (4.5-11.0) H 08/28/19 07:08 RBC 2.82 M/mm3 (3.65-5.03) L 08/28/19 07:08 Hgb 7.5 gm/dl (10.1-14.3) L 08/28/19 07:08 Hct 23.5 % (30.3-42.9) L 08/28/19 07:08 MCV 83 fl (79-97) 08/28/19 07:08 MCH 27 pg (28-32) L 08/28/19 07:08 MCHC 32 % (30-34) 08/28/19 07:08 RDW 15.6 % (13.2-15.2) H 08/28/19 07:08 Plt Count 703 K/mm3 (140-440) H 08/28/19 07:08 Add Manual Diff Complete 08/28/19 07:08 Total Counted 100 08/28/19 07:08 Seg Neuts % (Manual) 76.0 % (40.0-70.0) H 08/28/19 07:08 Band Neutrophils % 0 % 08/28/19 07:08 Lymphocytes % (Manual) 12.0 % (13.4-35.0) L 08/28/19 07:08 Reactive Lymphs % (Man) 0 % 08/28/19 07:08 Monocytes % (Manual) 5.0 % (0.0-7.3) 08/28/19 07:08 Eosinophils % (Manual) 5.0 % (0.0-4.3) H 08/28/19 07:08 Basophils % (Manual) 0 % (0.0-1.8) 08/28/19 07:08 Metamyelocytes % 2.0 % 08/28/19 07:08 Myelocytes % 0 % 08/28/19 07:08 Promyelocytes % 0 % 08/28/19 07:08 Blast Cells % 0 % 08/28/19 07:08 Nucleated RBC % Not Reportable 08/28/19 07:08 Seg Neutrophils # Man 10.6 K/mm3 (1.8-7.7) H 08/28/19 07:08 Band Neutrophils # 0.0 K/mm3 08/28/19 07:08 Lymphocytes # (Manual) 1.7 K/mm3 (1.2-5.4) 08/28/19 07:08 Abs React Lymphs (Man) 0.0 K/mm3 08/28/19 07:08 Monocytes # (Manual) 0.7 K/mm3 (0.0-0.8) 08/28/19 07:08 Eosinophils # (Manual) 0.7 K/mm3 (0.0-0.4) H 08/28/19 07:08 Basophils # (Manual) 0.0 K/mm3 (0.0-0.1) 08/28/19 07:08 Metamyelocytes # 0.3 K/mm3 08/28/19 07:08 Myelocytes # 0.0 K/mm3 08/28/19 07:08 Promyelocytes # 0.0 K/mm3 08/28/19 07:08 Blast Cells # 0.0 K/mm3 08/28/19 07:08 WBC Morphology Not Reportable 08/28/19 07:08 Hypersegmented Neuts Not Reportable 08/28/19 07:08 Hyposegmented Neuts Not Reportable 08/28/19 07:08 Hypogranular Neuts Not Reportable 08/28/19 07:08 Smudge Cells Not Reportable 08/28/19 07:08 Toxic Granulation Not Reportable 08/28/19 07:08 Toxic Vacuolation Not Reportable 08/28/19 07:08 Dohle Bodies Not Reportable 08/28/19 07:08 Pelger-Huet Anomaly Not Reportable 08/28/19 07:08 David Rods Not Reportable 08/28/19 07:08 Platelet Estimate Consistent w auto 08/28/19 07:08 Clumped Platelets Not Reportable 08/28/19 07:08 Plt Clumps, EDTA Not Reportable 08/28/19 07:08 Large Platelets Not Reportable 08/28/19 07:08 Giant Platelets Not Reportable 08/28/19 07:08 Platelet Satelliting Not Reportable 08/28/19 07:08 Plt Morphology Comment Not Reportable 08/28/19 07:08 RBC Morphology Not Reportable 08/28/19 07:08 Dimorphic RBCs Not Reportable 08/28/19 07:08 Polychromasia Few 08/28/19 07:08 Hypochromasia Rare 08/28/19 07:08 Poikilocytosis Not Reportable 08/28/19 07:08 Anisocytosis Few 08/28/19 07:08 Microcytosis Not Reportable 08/28/19 07:08 Macrocytosis Not Reportable 08/28/19 07:08 Spherocytes Not Reportable 08/28/19 07:08 Pappenheimer Bodies Not Reportable 08/28/19 07:08 Sickle Cells Not Reportable 08/28/19 07:08 Target Cells Not Reportable 08/28/19 07:08 Tear Drop Cells Rare 08/28/19 07:08 Ovalocytes Rare 08/28/19 07:08 Stomatocytes Few 08/25/19 09:10 Helmet Cells Not Reportable 08/28/19 07:08 [place] Bodies Not Reportable 08/28/19 07:08 [place] Rings Not Reportable 08/28/19 07:08 Reji Cells Not Reportable 08/28/19 07:08 Bite Cells Not Reportable 08/28/19 07:08 Crenated Cell Not Reportable 08/28/19 07:08 Elliptocytes Not Reportable 08/28/19 07:08 Acanthocytes (Spur) Not Reportable 08/28/19 07:08 Rouleaux Not Reportable 08/28/19 07:08 Hemoglobin C Crystals Not Reportable 08/28/19 07:08 Schistocytes Not Reportable 08/28/19 07:08 Malaria parasites Not Reportable 08/28/19 07:08 Jose E Bodies Not Reportable 08/28/19 07:08 Hem Pathologist Commnt No 08/28/19 07:08 PT 14.1 Sec. (12.2-14.9) 08/25/19 09:10 INR 1.08 (0.87-1.13) 08/25/19 09:10 VBG pH 7.394 (7.320-7.420) 08/25/19 09:10 Sodium 142 mmol/L (137-145) D 08/28/19 07:08 Potassium 4.5 mmol/L (3.6-5.0) 08/28/19 07:08 Chloride 104.2 mmol/L (98-107) 08/28/19 07:08 Carbon Dioxide 22 mmol/L (22-30) 08/28/19 07:08 Anion Gap 20 mmol/L 08/28/19 07:08 BUN 7 mg/dL (7-17) 08/28/19 07:08 Creatinine 0.9 mg/dL (0.7-1.2) 08/28/19 07:08 Estimated GFR > 60 ml/min 08/28/19 07:08 BUN/Creatinine Ratio 8 % 08/28/19 07:08 Glucose 92 mg/dL (65-100) 08/28/19 07:08 Lactic Acid 1.90 mmol/L (0.7-2.0) 08/25/19 14:34 Calcium 9.4 mg/dL (8.4-10.2) 08/28/19 07:08 Total Bilirubin 0.40 mg/dL (0.1-1.2) 08/25/19 09:10 AST 26 units/L (5-40) 08/25/19 09:10 ALT 26 units/L (7-56) 08/25/19 09:10 Alkaline Phosphatase 101 units/L (35-129) 08/25/19 09:10 Total Protein 8.0 g/dL (6.3-8.2) 08/25/19 09:10 Albumin 3.2 g/dL (3.9-5) L 08/25/19 09:10 Albumin/Globulin Ratio 0.7 % 08/25/19 09:10 HCG, Qual Negative (Negative) 08/25/19 12:29 Urine Color Myrna (Yellow) 08/25/19 11:30 Urine Turbidity Slightly-cloudy (Clear) 08/25/19 11:30 Urine pH 6.0 (5.0-7.0) 08/25/19 11:30 Ur Specific [place] 1.020 (1.003-1.030) 08/25/19 11:30 Urine Protein 30 mg/dl mg/dL (Negative) 08/25/19 11:30 Urine Glucose (UA) Neg mg/dL (Negative) 08/25/19 11:30 Urine Ketones Neg mg/dL (Negative) 08/25/19 11:30 Urine Blood Neg (Negative) 08/25/19 11:30 Urine Nitrite Neg (Negative) 08/25/19 11:30 Urine Bilirubin Neg (Negative) 08/25/19 11:30 Urine Urobilinogen 4.0 mg/dL (<2.0) 08/25/19 11:30 Ur Leukocyte Esterase Tr (Negative) 08/25/19 11:30 Urine WBC (Auto) 6.0 /HPF (0.0-6.0) 08/25/19 11:30 Urine RBC (Auto) 4.0 /HPF (0.0-6.0) 08/25/19 11:30 U Epithel Cells (Auto) 11.0 /HPF (0-13.0) 08/25/19 11:30 Urine Mucus Few /HPF 08/25/19 11:30 Vancomycin Trough 11.5 ug/mL (5.0-20.0) 08/28/19 11:39 Blood Type O POSITIVE 08/29/19 08:10 Antibody Screen Negative 08/29/19 08:10 Crossmatch See Detail 08/25/19 12:29 Active Medications - Current Medications Current Medications: Generic Name Dose Route Start Last Admin Trade Name Freq PRN Reason Stop Dose Admin Acetaminophen 650 mg 08/27/19 11:28 Tylenol PO Q4H PRN Pain MILD(1-3)/Fever >100.5/THOMPSON Enoxaparin Sodium 40 mg 08/27/19 22:00 08/28/19 23:11 Enoxaparin SUB-Q Not Given QDAY@2200 KAVIN Fentanyl 50 mcg 08/29/19 09:18 Sublimaze IV 08/29/19 20:00 Q5MIN PRN Pain , Severe (7-10) Vancomycin HCl 1,250 mg/ 275 mls @ 166.667 mls/hr 08/26/19 12:00 08/28/19 23:13 Sodium Chloride IV 166.667 mls/hr Q12H KAVIN Administration Cefepime HCl 2 gm in 100 mls @ 200 mls/hr 08/27/19 22:00 08/29/19 05:11 Cefepime/Ns 2 Gm/100 Ml IV 200 mls/hr Q8HR KAVIN Administration Protocol Metronidazole 500 mg in 100 mls @ 100 mls/hr 08/27/19 22:00 08/29/19 06:19 Flagyl 500 Mg/100 Ml IV 100 mls/hr Q8HR KAVIN Administration Protocol Lactated Ringer's 1,000 mls @ 100 mls/hr 08/29/19 07:00 08/29/19 07:15 Lactated Ringers IV 100 mls/hr DIRECT KAVIN Administration Meperidine HCl 25 mg 08/29/19 09:18 Demerol IV 08/29/19 18:00 ONCE PRN Shivering Metoclopramide HCl 10 mg 08/29/19 09:18 Reglan IV 08/29/19 18:00 ONCE PRN Nausea And Vomiting Midazolam HCl 2 mg 08/29/19 07:00 08/29/19 08:10 Versed IV 08/29/19 23:59 2 mg PREOP NR Administration Morphine Sulfate 2 mg 08/27/19 11:28 08/28/19 21:02 Morphine IV 2 mg Q4H PRN Administration Pain, Moderate (4-6) Morphine Sulfate 2 mg 08/29/19 09:18 Morphine IV 08/29/19 20:00 Q10MIN PRN Pain, Moderate (4-6) Ondansetron HCl 4 mg 08/27/19 11:28 08/28/19 21:02 Zofran IV 4 mg Q8H PRN Administration Nausea And Vomiting Ondansetron HCl 4 mg 08/27/19 11:34 Zofran Odt PO Q6H PRN Nausea And Vomiting Oxycodone/Acetaminophen 1 tab 08/27/19 11:28 08/29/19 09:50 Percocet 5/325 PO 1 tab Q6H PRN Administration Pain, Moderate (4-6) Sodium Chloride 10 ml 08/27/19 22:00 08/28/19 23:13 Sodium Chloride Flush Syringe 10 Ml IV 10 ml BID KAVIN Administration Sodium Chloride 10 ml 08/27/19 11:28 Sodium Chloride Flush Syringe 10 Ml IV PRN PRN LINE FLUSH Nutrition/Malnutrition Assess - Dietary Evaluation Nutrition/Malnutrition Findings: Nutrition Notes Start: 08/26/19 14:21 Freq: Status: Active Protocol: Document 08/28/19 12:19 CORBIN (Rec: 08/28/19 12:23 CORBIN [id number]) Co-Sign 08/28/19 12:19 LP Nutrition Notes Initial or Follow up Reassessment Other Pertinent Diagnosis surgical wound infection, R lateral hip abcess, s/p liposuction Current Diet Regular diet Labs/Tests Reviewed Pertinent Medications Reviewed Height 5 ft 6 in Weight 82.2 kg [place] Body Weight (kg) 59.09 BMI 29.2 Weight Status Overweight Subjective/Other Information F/U for PO intakes. Pt stated that her appetite was fair, but doesn't like the food here . 0% of breakfast was eaten. Preferences were taken. Pt stated that she ate all three meals yesterday, but some were brought in. Pt denied N/V Percent of energy/protein needs met: Unable to determine Burn Absent Trauma Absent GI Symptoms None Current % PO Negligible Minimum of two criteria No #1 Nutrition Diagnosis Increased nutrient needs ( specify in comment below) Comments: protein Diagnosis Progress(for reassessment Continues documentation) Is patient on ventilator? No Is Patient Ambulatory and/or Out of Bed Yes REE-([facility]-ambulatory/OOB) [ 2013.375 [id number]] Calculation Used for Recommendations [facility] Additional Notes Protein: 103-123g (1.25-1.5g/ kg) Fluid: 1 ml/kcal Nutrition Intervention Change Diet Order: Regular Goal #1 Meet at least 75% of energy and protein needs Anticipated Discharge Needs: regular diet Follow-Up By: 09/03/19 Additional Comments F/U for stable intakes.
--- NOTE | 2019-08-29 13:16 | Operative Report ---
PREOPERATIVE DIAGNOSIS: Bilateral postop abscesses. POSTOPERATIVE DIAGNOSIS: Bilateral postop abscesses. PROCEDURE: Incision, drainage and debridement of bilateral upper thigh/buttock abscesses. ATTENDING PHYSICIAN: Mannie Chirinos MD ANESTHESIA: Local MAC. ESTIMATED BLOOD LOSS: Minimal. FLUIDS: 600 mL. FINDINGS: Empty cavity on the right side, which had previously drained. Necrotic skin was seen at the surface. Underlying tissue appeared viable and healthy. On the left side, large amount of thick fluid was drained, which appeared like liquefied fat with some perhaps bacterial infection. The spontaneous point of drainage underneath the left buttock communicated with the large fluid pocket on the lateral aspect of the left thigh. Cultures were taken including surgical, anaerobic, fungal and AFB. I checked with pathology yesterday to make sure we obtained the samples correctly. DRAINS: None. COMPLICATIONS: None. DISPOSITION: Stable, transferred to Recovery Room. INDICATIONS: This is a 34-year-old female who had liposuction and fat injection done in [place] at the end of July. She presented to the hospital with complaints of increasing buttock pain and fevers. White count was found to be 16. We recommended incision and drainage on the day of ER visit; however, the patient was not ready to proceed with surgery. After multiple days in the hospital finally the patient agreed to move forward with surgery. Procedure, risks, benefits were explained to the patient. Risks include but were not limited to infection, bleeding, pain, injury to surrounding structures, possible need for further procedures in the future. The patient understood and consented. OPERATIVE NOTE: The patient was brought to the operating room. She was in a prone position on the transport bed. When told that she would need to be on her back briefly, the patient was not happy with this plan. Ultimately in discussion with Anesthesia, we decided that we would try to do the best we could with local MAC and allow her to stay in a prone position as she was not readily willing to go on her back for the intubation. Sterile prep and drape was performed. Pressure points were padded. The patient was already on antibiotics. SCDs were placed. Timeout was called. I began by injecting local anesthetic into the left lateral thigh planned incision site. While that local was setting in, I went to the right side. I excised the necrotic skin that was at the surface. The underlying tissue actually looked fairly healthy. I probed the wound, I found no other pockets. I excised a portion of the wound to be used for the fungal and AFB cultures. Pulse lavage was done of the wound. Wound was packed with Kerlix. I went back to the left side, a vertical incision was made in the top of the area of fluctuance. Large amount of thick yellowish/oily fluid was drained. It appeared to be liquified fat perhaps with some bacterial component. We drained at least a few 100 mL. This large cavity that was left communicated with a small drainage point that began to drain yesterday. Cultures were taken. Wound was thoroughly cleaned out with pulse lavage. I placed a quarter inch packing tape to connect the small drainage point underneath the left buttock and the large pocket that was left and then packed the wound with Kerlix. Skin was cleaned and dried, dressings were placed. The patient tolerated the procedure well. There were no complications. All counts were correct at the end of the case. JOB# [id number] JAIR/MELVINA
--- NOTE | 2019-08-29 13:21 | Post Anesthesia Evaluation ---
- Post Anesthesia Evaluation Patient Participated: Yes Airway Patent: Yes Stable Respiratory Function: Yes Nausea/Vomiting: No Temp > 96.8F: Yes Pain Manageable: Yes Adequeate Hydration: Yes Anesthesia Complications: No Block Receding Appropriately: Not Applicable Patient on Ventilator: No
[2019-08-29] MEDS: VANCOMYCIN 1,250 MG in SODIUM CHLORIDE 0.9% 250ML 250 ML IV SCH (13:31)
--- NOTE | 2019-08-29 13:34 | Progress Note ---
Assessment and Plan Cultures: 08/25/2019 blood cultures - pending 08/25/2019 urine cultures - no growth A&P: 34 yo F no PMHx admitted with gluteal abscess after having recent plastic surgery #Acute sepsis - present with tachycardia and leukocytosis, secondary to abscess #2 #Gluteal abscess - agree with surgical recommendation for I&D in the OR. High risk of developing worsening abscess or metastatic infection with risk of limb loss or . Would continue IV antibiotics for now, exchange Zosyn fro cefe pime/Flagyl to avoid nephrotoxicity of vanc/Zosyn combo. She is now amenable to surgery on my interview with her. She also reports the contralateral side is now developing similar symptoms. No abscess on contralateral side. Most likely Staph/Strep as causative agent given quick timecourse, however plastic surgery infections can be assocaite with AFB. Recommendations: - Continue cefepime 2g q8h - Continue metronidazole 500mg q8h - continue vancomycin dosed per pharmacy. Goal trough 10-20 - de-escalate based on culture data. - surgical I&D - follow up intra-operative bacterial, fungal, AFB cultures Thank you for the consult, we will continue to follow. Marlyn Oakes MD [facility] ([facility]) M: [phone] O: [phone] F: [phone] Subjective Date of service: 08/29/19 Interval history: Afebrile, persistent white count. Expected pain from I&D performed today. Objective - Exam Narrative Exam: Constitutional: Alert, cooperative. No acute distress Head, Ears, Nose: Normocephalic, atraumatic. External ears, nose normal Eyes: Conjunctivae/corneas clear. No icterus. No ptosis. Neck: Supple, no meningeal signs Oral: dentition fair, no thrush Cardiovascular: S1, S2 normal. Respiratory: Good air entry, clear to auscultation bilaterally GI: Soft, non-tender; bowel sounds normal. No peritoneal signs. Musculoskeletal: bilateral hip wounds s/p I&D Skin: No rash or abscess Hem/Lymphatic: No palpable cervical or supraclavicular nodes. No lymphangitis Psych: Mood ok. Affect normal Neurological: Awake, alert, oriented. No gross abnormality - Constitutional Vitals: Vital Signs Temp Pulse Resp BP Pulse Ox 98.2 F 102 H 16 94/47 97 08/29/19 12:07 08/29/19 12:07 08/29/19 12:07 08/29/19 12:07 08/29/19 12:07 Temperature -Last 24 Hours Temperature 98.2 F Temperature 97.8 F Temperature 98 F Temperature 97.9 F Temperature 98.9 F Temperature 98.9 F Temperature 98.9 F Temperature 98.4 F - Labs CBC & Chem 7: 08/28/19 07:08 08/28/19 07:08
[2019-08-30] MEDS: ENOXAPARIN 40 MG/0.4 ML INJ SUB-Q SCH ×2 (00:39→21:43)
[2019-08-30] MEDS: CEFEPIME/NS 2 GM/100 ML 2 GM/100 ML BAG IV SCH ×4 (00:40→21:40)
[2019-08-30] MEDS: metroNIDAZOLE/NS 500 MG/100 ML 500 MG/100 ML BAG IV SCH ×4 (00:40→21:44)
[2019-08-30] MEDS: VANCOMYCIN 1,250 MG in SODIUM CHLORIDE 0.9% 250ML 250 ML IV SCH ×2 (00:40→12:51)
[2019-08-30] MEDS: oxyCODONE /ACETAMINOPHEN 5-325MG TAB PO PRN ×4 (01:40→19:43)
[2019-08-30] MEDS: LACTATED RINGERS 1,000 ML IV SCH (09:06)
--- NOTE | 2019-08-30 11:53 | Progress Note ---
Assessment and Plan Cultures: 08/25/2019 blood cultures - pending 08/25/2019 urine cultures - no growth 08/29/2019 surgical cultures - pending, negative gram stains A&P: 34 yo F no PMHx admitted with gluteal abscess after having recent plastic surgery #Acute sepsis - present with tachycardia and leukocytosis, secondary to abscess #2 #Gluteal abscess - agree with surgical recommendation for I&D in the OR. High risk of developing worsening abscess or metastatic infection with risk of limb loss or . Would continue IV antibiotics for now, exchange Zosyn fro cefepime/Flagyl to avoid nephrotoxicity of vanc/Zosyn combo. Most likely Staph/Strep as causative agent given quick timecourse, however plastic surgery infections can be assocaite with AFB. Recommendations: - Continue cefepime 2g q8h - Continue metronidazole 500mg q8h - continue vancomycin dosed per pharmacy. Goal trough 10-20 - de-escalate based on culture data. - follow up intra-operative bacterial, fungal, AFB cultures Thank you for the consult, we will continue to follow. Marlyn Oakes MD [facility] ([facility]) M: [phone] O: [phone] F: [phone] Subjective Date of service: 08/30/19 Interval history: Afebrile, s/p I&D of bilateral abscesses. Objective - Exam Narrative Exam: Constitutional: Alert, cooperative. No acute distress Head, Ears, Nose: Normocephalic, atraumatic. External ears, nose normal Eyes: Conjunctivae/corneas clear. No icterus. No ptosis. Neck: Supple, no meningeal signs Oral: dentition fair, no thrush Cardiovascular: S1, S2 normal. Respiratory: Good air entry, clear to auscultation bilaterally GI: Soft, non-tender; bowel sounds normal. No peritoneal signs. Musculoskeletal: bilateral hip wounds s/p I&D Skin: No rash or abscess Hem/Lymphatic: No palpable cervical or supraclavicular nodes. No lymphangitis Psych: Mood ok. Affect normal Neurological: Awake, alert, oriented. No gross abnormality - Constitutional Vitals: Vital Signs Temp Pulse Resp BP Pulse Ox 97.9 F 88 16 102/63 99 08/30/19 04:54 08/30/19 04:54 08/30/19 04:54 08/30/19 04:54 08/30/19 04:54 Temperature -Last 24 Hours Temperature 97.9 F Temperature 98.5 F Temperature 98.2 F - Labs CBC & Chem 7: 08/28/19 07:08 08/28/19 07:08
--- NOTE | 2019-08-30 12:33 | Progress Note ---
Assessment and Plan - Patient Problems (1) Surgical wound infection Current Visit: Yes Status: Acute Plan to address problem: Pt stable. s/p I&D with debridement of bilateral upper thigh wounds - 08/29 - POD#1. Overall, it appeared as though we were primarily dealing with liquefied fat from the fat injection procedure she had previously. There was no odor. The initial Gram stain results are not that impressive. We defer to infectious disease on antibiotic management. From a surgical standpoint, patient has already been educated on wound care by the wound care nurse and is okay for discharge. We will either see her in the wound care clinic if she is able to get accepted or she can follow up in my office about 1 week after discharge. Please call with questions. Subjective Date of service: 08/30/19 Patient Reports: Positive: no new complaints Objective Vital Signs - 12hr 08/30/19 08/30/19 01:40 04:54 Temperature 97.9 F Pulse Rate 88 Respiratory 20 16 Rate Blood Pressure 102/63 O2 Sat by Pulse 99 Oximetry - General physical appearance no distress, no pain - Eyes normal occular movement - Respiratory normal expansion, normal respiratory effort - Psychiatric oriented to time, oriented to person, oriented to place, speech is normal, memory intact - Labs 08/28/19 07:08 08/28/19 07:08
[2019-08-30] MEDS ORDERED: SENNOSIDES/DOCUSATE SODIUM 8.6/50 MG TAB PO PRN (13:42)
--- NOTE | 2019-08-30 14:05 | Progress Note ---
Assessment and Plan Assessment and plan: 34-year-old woman who recently underwent [place] butt lift. She had liposuction from her abdominal area and had fat transfer to her bottom. She presents with swelling pain and drainage from the right side of her thigh. She is also having swelling and fluctuance of left thigh. Plastic surgeon is Dr. Mcqueen in [place] Cellulitis/abscess -Unfortunately this is unexpected adverse outcome of the surgery -Status post I&D and debridement of bilateral thighs 08/29. Necrotic skin with liquefied fat was noted on the right side. Further management per general surgery. Continue antibiotics. ID consult appreciated. Awaiting cultures Sepsis Continue sepsis protocol DVT prophylaxis; frequent ambulation History Interval history: Continues to complain of drainage from right upper lateral thigh and swelling of left upper lateral thigh Review of systems Constitutional: No fevers, no malaise, no joint pains CVS: No chest pain, no orthopnea, no pedal edema GI: No abdominal pain, no diarrhea, no vomiting, no constipation Respiratory: , no wheezing, no coughing Hospitalist Physical - Physical exam Narrative exam: General.: Appears well, no distress, nontoxic HEENT: Moist mucous membranes, extraocular muscles intact, no lymphadenopathy Neck: supple Cardiac: S1-S2 heard Lungs: clear to auscultation bilaterally Abdomen: soft , nontender, nondistended, bowel sounds positive Extremities: no edema clubbing or cyanosis Skin: Induration around the buttock/thigh, there is a dressing on the right side which was not removed, and has recently been packed. But on the left side there is fluctuance Neurologic: no gross focal deficits Psych: calm, and cooperative - Constitutional Vitals: Temp Pulse Resp BP Pulse Ox 98.1 F 108 H 19 99/62 98 08/30/19 12:00 08/30/19 12:00 08/30/19 12:00 08/30/19 12:00 08/30/19 12:00 General appearance: Present: mild distress Results - Labs CBC & Chem 7: 08/28/19 07:08 08/28/19 07:08 Labs: Laboratory Last Values WBC 13.9 K/mm3 (4.5-11.0) H 08/28/19 07:08 RBC 2.82 M/mm3 (3.65-5.03) L 08/28/19 07:08 Hgb 7.5 gm/dl (10.1-14.3) L 08/28/19 07:08 Hct 23.5 % (30.3-42.9) L 08/28/19 07:08 MCV 83 fl (79-97) 08/28/19 07:08 MCH 27 pg (28-32) L 08/28/19 07:08 MCHC 32 % (30-34) 08/28/19 07:08 RDW 15.6 % (13.2-15.2) H 08/28/19 07:08 Plt Count 703 K/mm3 (140-440) H 08/28/19 07:08 Add Manual Diff Complete 08/28/19 07:08 Total Counted 100 08/28/19 07:08 Seg Neuts % (Manual) 76.0 % (40.0-70.0) H 08/28/19 07:08 Band Neutrophils % 0 % 08/28/19 07:08 Lymphocytes % (Manual) 12.0 % (13.4-35.0) L 08/28/19 07:08 Reactive Lymphs % (Man) 0 % 08/28/19 07:08 Monocytes % (Manual) 5.0 % (0.0-7.3) 08/28/19 07:08 Eosinophils % (Manual) 5.0 % (0.0-4.3) H 08/28/19 07:08 Basophils % (Manual) 0 % (0.0-1.8) 08/28/19 07:08 Metamyelocytes % 2.0 % 08/28/19 07:08 Myelocytes % 0 % 08/28/19 07:08 Promyelocytes % 0 % 08/28/19 07:08 Blast Cells % 0 % 08/28/19 07:08 Nucleated RBC % Not Reportable 08/28/19 07:08 Seg Neutrophils # Man 10.6 K/mm3 (1.8-7.7) H 08/28/19 07:08 Band Neutrophils # 0.0 K/mm3 08/28/19 07:08 Lymphocytes # (Manual) 1.7 K/mm3 (1.2-5.4) 08/28/19 07:08 Abs React Lymphs (Man) 0.0 K/mm3 08/28/19 07:08 Monocytes # (Manual) 0.7 K/mm3 (0.0-0.8) 08/28/19 07:08 Eosinophils # (Manual) 0.7 K/mm3 (0.0-0.4) H 08/28/19 07:08 Basophils # (Manual) 0.0 K/mm3 (0.0-0.1) 08/28/19 07:08 Metamyelocytes # 0.3 K/mm3 08/28/19 07:08 Myelocytes # 0.0 K/mm3 08/28/19 07:08 Promyelocytes # 0.0 K/mm3 08/28/19 07:08 Blast Cells # 0.0 K/mm3 08/28/19 07:08 WBC Morphology Not Reportable 08/28/19 07:08 Hypersegmented Neuts Not Reportable 08/28/19 07:08 Hyposegmented Neuts Not Reportable 08/28/19 07:08 Hypogranular Neuts Not Reportable 08/28/19 07:08 Smudge Cells Not Reportable 08/28/19 07:08 Toxic Granulation Not Reportable 08/28/19 07:08 Toxic Vacuolation Not Reportable 08/28/19 07:08 Dohle Bodies Not Reportable 08/28/19 07:08 Pelger-Huet Anomaly Not Reportable 08/28/19 07:08 David Rods Not Reportable 08/28/19 07:08 Platelet Estimate Consistent w auto 08/28/19 07:08 Clumped Platelets Not Reportable 08/28/19 07:08 Plt Clumps, EDTA Not Reportable 08/28/19 07:08 Large Platelets Not Reportable 08/28/19 07:08 Giant Platelets Not Reportable 08/28/19 07:08 Platelet Satelliting Not Reportable 08/28/19 07:08 Plt Morphology Comment Not Reportable 08/28/19 07:08 RBC Morphology Not Reportable 08/28/19 07:08 Dimorphic RBCs Not Reportable 08/28/19 07:08 Polychromasia Few 08/28/19 07:08 Hypochromasia Rare 08/28/19 07:08 Poikilocytosis Not Reportable 08/28/19 07:08 Anisocytosis Few 08/28/19 07:08 Microcytosis Not Reportable 08/28/19 07:08 Macrocytosis Not Reportable 08/28/19 07:08 Spherocytes Not Reportable 08/28/19 07:08 Pappenheimer Bodies Not Reportable 08/28/19 07:08 Sickle Cells Not Reportable 08/28/19 07:08 Target Cells Not Reportable 08/28/19 07:08 Tear Drop Cells Rare 08/28/19 07:08 Ovalocytes Rare 08/28/19 07:08 Stomatocytes Few 08/25/19 09:10 Helmet Cells Not Reportable 08/28/19 07:08 Luna-Winston Bodies Not Reportable 08/28/19 07:08 [place] Rings Not Reportable 08/28/19 07:08 Reji Cells Not Reportable 08/28/19 07:08 Bite Cells Not Reportable 08/28/19 07:08 Crenated Cell Not Reportable 08/28/19 07:08 Elliptocytes Not Reportable 08/28/19 07:08 Acanthocytes (Spur) Not Reportable 08/28/19 07:08 Rouleaux Not Reportable 08/28/19 07:08 Hemoglobin C Crystals Not Reportable 08/28/19 07:08 Schistocytes Not Reportable 08/28/19 07:08 Malaria parasites Not Reportable 08/28/19 07:08 Jose E Bodies Not Reportable 08/28/19 07:08 Hem Pathologist Commnt No 08/28/19 07:08 PT 14.1 Sec. (12.2-14.9) 08/25/19 09:10 INR 1.08 (0.87-1.13) 08/25/19 09:10 VBG pH 7.394 (7.320-7.420) 08/25/19 09:10 Sodium 142 mmol/L (137-145) D 08/28/19 07:08 Potassium 4.5 mmol/L (3.6-5.0) 08/28/19 07:08 Chloride 104.2 mmol/L (98-107) 08/28/19 07:08 Carbon Dioxide 22 mmol/L (22-30) 08/28/19 07:08 Anion Gap 20 mmol/L 08/28/19 07:08 BUN 7 mg/dL (7-17) 08/28/19 07:08 Creatinine 0.9 mg/dL (0.7-1.2) 08/28/19 07:08 Estimated GFR > 60 ml/min 08/28/19 07:08 BUN/Creatinine Ratio 8 % 08/28/19 07:08 Glucose 92 mg/dL (65-100) 08/28/19 07:08 Lactic Acid 1.90 mmol/L (0.7-2.0) 08/25/19 14:34 Calcium 9.4 mg/dL (8.4-10.2) 08/28/19 07:08 Total Bilirubin 0.40 mg/dL (0.1-1.2) 08/25/19 09:10 AST 26 units/L (5-40) 08/25/19 09:10 ALT 26 units/L (7-56) 08/25/19 09:10 Alkaline Phosphatase 101 units/L (35-129) 08/25/19 09:10 Total Protein 8.0 g/dL (6.3-8.2) 08/25/19 09:10 Albumin 3.2 g/dL (3.9-5) L 08/25/19 09:10 Albumin/Globulin Ratio 0.7 % 08/25/19 09:10 HCG, Qual Negative (Negative) 08/25/19 12:29 Urine Color Myrna (Yellow) 08/25/19 11:30 Urine Turbidity Slightly-cloudy (Clear) 08/25/19 11:30 Urine pH 6.0 (5.0-7.0) 08/25/19 11:30 Ur Specific Bryan 1.020 (1.003-1.030) 08/25/19 11:30 Urine Protein 30 mg/dl mg/dL (Negative) 08/25/19 11:30 Urine Glucose (UA) Neg mg/dL (Negative) 08/25/19 11:30 Urine Ketones Neg mg/dL (Negative) 08/25/19 11:30 Urine Blood Neg (Negative) 08/25/19 11:30 Urine Nitrite Neg (Negative) 08/25/19 11:30 Urine Bilirubin Neg (Negative) 08/25/19 11:30 Urine Urobilinogen 4.0 mg/dL (<2.0) 08/25/19 11:30 Ur Leukocyte Esterase Tr (Negative) 08/25/19 11:30 Urine WBC (Auto) 6.0 /HPF (0.0-6.0) 08/25/19 11:30 Urine RBC (Auto) 4.0 /HPF (0.0-6.0) 08/25/19 11:30 U Epithel Cells (Auto) 11.0 /HPF (0-13.0) 08/25/19 11:30 Urine Mucus Few /HPF 08/25/19 11:30 Vancomycin Trough 11.5 ug/mL (5.0-20.0) 08/28/19 11:39 AFB Identification 08/29/19 Unknown Fungal Id Prelim 08/29/19 15:42 Blood Type O POSITIVE 08/29/19 08:10 Antibody Screen Negative 08/29/19 08:10 Crossmatch See Detail 08/25/19 12:29 Active Medications - Current Medications Current Medications: Generic Name Dose Route Start Last Admin Trade Name Freq PRN Reason Stop Dose Admin Acetaminophen 650 mg 08/27/19 11:28 Tylenol PO Q4H PRN Pain MILD(1-3)/Fever >100.5/THOMPSON Enoxaparin Sodium 40 mg 08/27/19 22:00 08/30/19 00:39 Enoxaparin SUB-Q 40 mg QDAY@2200 KAVIN Administration Vancomycin HCl 1,250 mg/ 275 mls @ 166.667 mls/hr 08/26/19 12:00 08/30/19 12:51 Sodium Chloride IV 166.667 mls/hr Q12H KAVIN Administration Cefepime HCl 2 gm in 100 mls @ 200 mls/hr 08/27/19 22:00 08/30/19 06:23 Cefepime/Ns 2 Gm/100 Ml IV 200 mls/hr Q8HR KAVIN Administration Protocol Metronidazole 500 mg in 100 mls @ 100 mls/hr 08/27/19 22:00 08/30/19 06:23 Flagyl 500 Mg/100 Ml IV 100 mls/hr Q8HR KAVIN Administration Protocol Lactated Ringer's 1,000 mls @ 100 mls/hr 08/29/19 07:00 08/30/19 09:06 Lactated Ringers IV 100 mls/hr DIRECT KAVIN Administration Ondansetron HCl 4 mg 08/27/19 11:28 08/28/19 21:02 Zofran IV 4 mg Q8H PRN Administration Nausea And Vomiting Ondansetron HCl 4 mg 08/27/19 11:34 Zofran Odt PO Q6H PRN Nausea And Vomiting Oxycodone/Acetaminophen 1 tab 08/29/19 21:39 08/30/19 09:05 Percocet 5/325 PO 1 tab Q4H PRN Administration Pain, Moderate (4-6) Polyethylene Glycol 17 gm 08/30/19 14:00 Miralax 3350 PO QDAY KAVIN Senna/Docusate Sodium 2 tab 08/30/19 13:42 Senokot S PO Q12H PRN Laxative Effect Sodium Chloride 10 ml 08/27/19 22:00 08/30/19 05:26 Sodium Chloride Flush Syringe 10 Ml IV Not Given BID KAVIN Sodium Chloride 10 ml 08/27/19 11:28 Sodium Chloride Flush Syringe 10 Ml IV PRN PRN LINE FLUSH Nutrition/Malnutrition Assess - Dietary Evaluation Nutrition/Malnutrition Findings: Nutrition Notes Start: 08/26/19 14 :21 Freq: Status: Active Protocol: Document 08/28/19 12:19 CORBIN (Rec: 08/28/19 12:23 CORBIN [id number]) Co-Sign 08/28/19 12:19 LP Nutrition Notes Initial or Follow up Reassessment Other Pertinent Diagnosis surgical wound infection, R lateral hip abcess, s/p liposuction Current Diet Regular diet Labs/Tests Reviewed Pertinent Medications Reviewed Height 5 ft 6 in Weight 82.2 kg [place] Body Weight (kg) 59.09 BMI 29.2 Weight Status Overweight Subjective/Other Information F/U for PO intakes. Pt stated that her appetite was fair, but doesn't like the food here . 0% of breakfast was eaten. Preferences were taken. Pt stated that she ate all three meals yesterday, but some were brought in. Pt denied N/V Percent of energy/protein needs met: Unable to determine Burn Absent Trauma Absent GI Symptoms None Current % PO Negligible Minimum of two criteria No #1 Nutrition Diagnosis Increased nutrient needs ( specify in comment below) Comments: protein Diagnosis Progress(for reassessment Continues documentation) Is patient on ventilator? No Is Patient Ambulatory and/or Out of Bed Yes REE-([facility]. Jenm-ambulatory/OOB) [ 2013.375 [id number]] Calculation Used for Recommendations [facility] Additional Notes Protein: 103-123g (1.25-1.5g/ kg) Fluid: 1 ml/kcal Nutrition Intervention Change Diet Order: Regular Goal #1 Meet at least 75% of energy and protein needs Anticipated Discharge Needs: regular diet Follow-Up By: 09/03/19 Additional Comments F/U for stable intakes.
[2019-08-30] MEDS: POLYETHYLENE GLYCOL 3350 17 GM POWDER PO SCH (14:21)
[2019-08-30] MEDS ORDERED: traMADol 50 MG TAB PO PRN (23:11)
[2019-08-31] MEDS: oxyCODONE /ACETAMINOPHEN 5-325MG TAB PO PRN ×2 (00:08→04:09)
[2019-08-31] MEDS: VANCOMYCIN 1,250 MG in SODIUM CHLORIDE 0.9% 250ML 250 ML IV SCH ×2 (00:09→12:50)
[2019-08-31] MEDS: LACTATED RINGERS 1,000 ML IV SCH (04:13)
[2019-08-31] MEDS: CEFEPIME/NS 2 GM/100 ML 2 GM/100 ML BAG IV SCH ×2 (06:04→13:25)
[2019-08-31] MEDS: metroNIDAZOLE/NS 500 MG/100 ML 500 MG/100 ML BAG IV SCH ×2 (06:10→13:25)
--- NOTE | 2019-08-31 08:11 | Discharge Summary ---
Providers - Providers Date of Admission: 08/26/19 09:51 Attending physician: RICHARD ODEN MD 08/25/19 15:20 Consult to Physician [CONS] Stat Comment: Consulting Provider: BRIDGET MORE Physician Instructions: Reason For Exam: gluteal abscess, status post Liposuction 08/27/19 11:28 Consult to Physician [CONS] Routine Comment: Consulting Provider: SARAH ABDI Physician Instructions: Reason For Exam: surgical wound infection 08/27/19 11:29 Consult to Wound/ET Nurse [CONS] Routine Reason For Exam: wound eval Primary care physician: DIRECTOR [employer] Hospitalization Condition: Stable Hospital course: 34-year-old woman who recently underwent [place] butt lift. She had liposuction from her abdominal area and had fat transfer to her bottom. She presents with swelling pain and drainage from the right side of her thigh. She is also having swelling and fluctuance of left thigh. Plastic surgeon is Dr. Mcqueen in [place] Cellulitis/abscess -Unfortunately this is unexpected adverse outcome of the surgery -Status post I&D and debridement of bilateral thighs 08/29. Necrotic skin with liquefied fat was noted on the right side. ID consult appreciated, surgical cultures were negative at time of discharge. She is discharged on dual oral antibiotics. And is to follow-up in surgery clinic on Monday. Sepsis Continue sepsis protocol DVT prophylaxis; frequent ambulation Preventative health counseling performed for 17 minutes Disposition: TO HOME OR SELFCARE Time spent for discharge: 35 minutes Core Measure Documentation - Palliative Care Palliative Care/ Comfort Measures: Not Applicable - Core Measures Any of the following diagnoses?: none Exam - Physical Exam Narrative exam: General.: Appears well, no distress, nontoxic HEENT: Moist mucous membranes, extraocular muscles intact, no lymphadenopathy Neck: supple Cardiac: S1-S2 heard Lungs: clear to auscultation bilaterally Abdomen: soft , nontender, nondistended, bowel sounds positive Extremities: no edema clubbing or cyanosis Skin: Induration around the buttock/thigh, there is a dressing on the right side which was not removed, and has recently been packed. But on the left side swelling and erythema improved Neurologic: no gross focal deficits Psych: calm, and cooperative - Constitutional Vitals: Temp Pulse Resp BP Pulse Ox 98.4 F 93 H 18 109/61 98 08/31/19 01:14 08/31/19 01:14 08/31/19 04:09 08/31/19 01:14 08/31/19 01:14 Plan Follow up with: BRIDGET MORE MD [Staff Physician] - 7 Days PRIMARY CARE, [Primary Care Provider] - 3-5 Days Prescriptions: Sulfamethoxazole/Trimethoprim [Bactrim DS TAB] 1 each PO BID #14 tablet cefUROXime [Ceftin] 500 mg PO Q12H #28 tablet Polyethylene Glycol 3350 [Miralax 3350] 17 gm PO QDAY #30 powd.pack oxyCODONE /ACETAMINOPHEN 7.5 - 325 mg PO Q4H PRN #30 PRN Reason: Pain, Moderate (4-6) Sennosides/Docusate [Senokot S] 2 tab PO Q12H PRN #60 tablet PRN Reason: Laxative Effect
[2019-08-31] MEDS: POLYETHYLENE GLYCOL 3350 17 GM POWDER PO SCH (09:19)
[2019-08-31 13:10] VITALS: BP 114/68
== END 2019-08-31 16:23 | disposition home or self-care (01) | DRG 856 ==
LOC: ED 08:36 → 3A 15:23 → OBSVTOIN 08-26 09:51
PROVIDERS: ADMIT Internal Medicine; ATTEND Internal Medicine
PROC: 30233N1 Transfusion of Nonautologous Red Blood Cells into Peripheral Vein, Percutaneous Approach (ICD-10-PCS; 2019-08-24)
PROC: 0JBL0ZZ Excision of Right Upper Leg Subcutaneous Tissue and Fascia, Open Approach (ICD-10-PCS; principal; 2019-08-29)
PROC: 0JB70ZZ Excision of Back Subcutaneous Tissue and Fascia, Open Approach (ICD-10-PCS; 2019-08-29)
PROC: 0HBJXZZ Excision of Left Upper Leg Skin, External Approach (ICD-10-PCS; 2019-08-29)
DX: T81.49XA Infection following a procedure, other surgical site, initial encounter (principal); A41.9 Sepsis, unspecified organism; L02.31 Cutaneous abscess of buttock; L03.115 Cellulitis of right lower limb; L03.116 Cellulitis of left lower limb; Y83.8 Other surgical procedures as the cause of abnormal reaction of the patient, or of later complication, without mention of misadventure at the time of the procedure; Y92.89 Other specified places as the place of occurrence of the external cause
CPT/HCPCS: 36415; 71046; 80048; 80053; 80202; 81001; 81025; 82140; 82805; 84703; 85007; 85025; 85610; 86850; 86900; 86901; 86920; 87040; 87075; 87086; 87102; 87116; 87220; 88112; 88304; 88312; 93005; 93010; G0378; A4217; J0330; J0692; J1100; J1650; J2250; J2270; J2370; J2405; J2543; J2704; J2710; J3010; J3370; J7030; J7040; J7050; J7120; P9016; Q0162